=== PATIENT | female | born 1960 | race Caucasian/White ===

== ENCOUNTER 2016-12-07 05:59 | Inpatient (IN) | payer BC ==
[2016-12-07] VITALS (12 sets, daily range): BP systolic 119–197; BP diastolic 65–93
[~2016-12-07] VITALS: Ht 157.5 cm; Wt 54.5 kg
[~2016-12-07 05:59] MED LIST: ASPIR 8181 M1 PO; CALCIUM 600 MG1 EACH PO; CALCIUM ACETAT667 M2 PO; COREG25 M1 PO; DELFLEX W/1.53000 ML PD; DIALYVITE 801 TABLET PO; FISH OIL300 MG PO; HUMALOG100 UNIT/2 SC; HUMULIN N100 UNIT/2 SC; HYDRALAZINE HCL10 MG PO; IMDUR30 MG PO; LANTUS 3 M100 UNITS1 SC; LASIX40 MG PO; LIPITOR20 MG PO; MAGNESIUM250 MG PO; RENA-VITE RX T1 EACH PO; RENVELA800 MG PO; TOPROL XL50 MG PO; VITAMIN C1000 MG PO; VITAMIN D31000 UNI2 PO; ZESTRIL2.5 MG PO
[2016-12-07 06:45] LABS: POINT-OF-CARE METER ID UU14174212
[2016-12-07 06:47] LABS: HEMATOCRIT 41.6 % (36.0-46.0); MCH 29.6 PG (29.0-34.0); MCHC 32.7 G/DL (30.0-36.0); MCV 90.4 FL (83-99); MEAN PLAT.VOLUME 10.2 uM^3 (9.5-12.4); PLATELET COUNT 214 K/uL (156-360); RBC DIS.WIDTH-CV 14.1 % (11.8-14.6); RBC DIS.WIDTH-SD 46.2 % (39-53); WHITE BLOOD COUNT 8.3 K/uL (4.1-10.2)
[2016-12-07 07:06] LABS: ANION GAP 8 MEQ/L (2-14); CHLORIDE 108 MEQ/L (99-109); POTASSIUM 4.7 MEQ/L (3.7-5.4); SAMPLE HEMOLYSIS CHECK 0; SAMPLE ICTERIC CHECK 0; SAMPLE LIPEMIA CHECK 0; SODIUM 139 MEQ/L (136-147)
[2016-12-07 07:11] LABS: GFR ESTIMATE (CALCULATED) 9 mL/min/; GLUCOSE 109 mg/dL (70-99); UREA NITROGEN (BUN) 36 mg/dL (9-23)
[2016-12-07] MEDS ORDERED: NORCO 5/3251 TABLET PO (11:01)
[2016-12-07 14:38] LABS: METH RESISTANT S AUREUS PCR NEGATIVE (NEGATIVE)
[2016-12-07 14:41] LABS: PROBE CHECK PASS; SPECIMEN PROCESSING CONTROL PASS
[2016-12-07 17:11] LABS: POINT-OF-CARE METER ID UU13113803
[2016-12-08 01:10] VITALS: BP 144/69
[2016-12-08 05:03] VITALS: BP 128/62
[2016-12-08 05:53] LABS: EOSINOPHIL (%) 0.3 % (0-5); HEMATOCRIT 37.1 % (36.0-46.0); IMMATURE GRANULOCYTE (%) 0.3 % (0.0-0.7); LYMPHOCYTE COUNT 1.3 K/uL (1.0-2.8); MCH 28.8 PG (29.0-34.0); MCHC 32.3 G/DL (30.0-36.0); MEAN PLAT.VOLUME 10.8 uM^3 (9.5-12.4); MONOCYTE (%) 6.5 % (3-12); MONOCYTE COUNT 0.8 K/uL (0-0.8); NEUTROPHIL (%) 81.9 % (45-76); NEUTROPHIL COUNT 9.6 K/uL (1.8-6.4); PLATELET COUNT 184 K/uL (156-360); RBC DIS.WIDTH-CV 14.1 % (11.8-14.6); RBC DIS.WIDTH-SD 45.8 % (39-53); RED BLOOD COUNT 4.17 M/uL (3.80-5.20); WHITE BLOOD COUNT 11.7 K/uL (4.1-10.2)
[2016-12-08 06:11] LABS: ANION GAP 11 MEQ/L (2-14); CHLORIDE 105 MEQ/L (99-109); GFR ESTIMATE (CALCULATED) 12 mL/min/; GLUCOSE 108 mg/dL (70-99); POTASSIUM 4.6 MEQ/L (3.7-5.4); SAMPLE HEMOLYSIS CHECK 0; SAMPLE ICTERIC CHECK 0; SAMPLE LIPEMIA CHECK 0; SODIUM 138 MEQ/L (136-147); UREA NITROGEN (BUN) 33 mg/dL (9-23)
[2016-12-08 08:36] VITALS: BP 136/80
[2016-12-08 11:26] LABS: POINT-OF-CARE METER ID UU13113698
[2016-12-08 11:53] VITALS: BP 129/66
== END 2016-12-08 12:37 | disposition home or self-care (01) | DRG 37 ==
LOC: 2SOUTH 05:59 → 4WEST 12:20 → 2SOUTH 13:50 → 4EAST 20:56
PROVIDERS: Internal Medicine Nephrology; Surgery
DX: I65.22 Occlusion and stenosis of left carotid artery (principal); N18.6 End stage renal disease; I13.2 Hypertensive heart and chronic kidney disease with heart failure and with stage 5 chronic kidney disease, or end stage renal disease; E11.22 Type 2 diabetes mellitus with diabetic chronic kidney disease; Z99.2 Dependence on renal dialysis; E78.5 Hyperlipidemia, unspecified; D68.59 Other primary thrombophilia; I83.819 Varicose veins of unspecified lower extremity with pain; I27.2 Other secondary pulmonary hypertension; E78.00 Pure hypercholesterolemia, unspecified; I35.1 Nonrheumatic aortic (valve) insufficiency; I25.10 Atherosclerotic heart disease of native coronary artery without angina pectoris; Z87.891 Personal history of nicotine dependence; I50.9 Heart failure, unspecified; I25.5 Ischemic cardiomyopathy; Z95.1 Presence of aortocoronary bypass graft; Z79.82 Long term (current) use of aspirin; Z79.4 Long term (current) use of insulin
CPT/HCPCS: 80048; 82948; 85025; 85027; 87641; 93005; C1768; J0690; J1644; J1815; J2250; J2405; J2720; J2765; J2795; J3010; J7050

== ENCOUNTER 2016-12-15 16:44 | Emergency (ER) | payer BC ==
[~2016-12-15] VITALS: Ht 157.5 cm; Wt 54.7 kg
[~2016-12-15 16:44] MED LIST changes: +NORCO 5/3251 TABLET PO
[2016-12-15 18:33] LABS: HEMATOCRIT 35.9 % (36.0-46.0); MCH 29.6 PG (29.0-34.0); MCHC 33.4 G/DL (30.0-36.0); MCV 88.6 FL (83-99); MEAN PLAT.VOLUME 9.6 uM^3 (9.5-12.4); PLATELET COUNT 206 K/uL (156-360); RBC DIS.WIDTH-CV 14.4 % (11.8-14.6); RED BLOOD COUNT 4.05 M/uL (3.80-5.20); WHITE BLOOD COUNT 6.4 K/uL (4.1-10.2)
[2016-12-15 18:42] LABS: CHLORIDE 106 mEq/L (99-109); POTASSIUM 4.1 mEq/L (3.7-5.4); SODIUM 140 mEq/L (136-147)
[2016-12-15 18:44] LABS: GLUCOSE 115 mg/dL (70-99)
[2016-12-15 18:45] LABS: ANION GAP 11 MEQ/L (2-14)
[2016-12-15 18:47] LABS: GFR ESTIMATE (CALCULATED) 10 mL/min/
[2016-12-15 18:48] LABS: UREA NITROGEN (BUN) 48 mg/dL (9-23)
[2016-12-15 19:04] LABS: BODY FLUID RBC'S 1000 /MM^3 (0-100); BODY FLUID WBC'S 18 /MM^3 (0-500); TYPE OF FLUID PERITONEAL
[2016-12-15 19:16] LABS: BODY FLUID EOSINOPHILS 0 % (0-25); MONO RAW COUNT 75; MONONUCLEAR WBC'S 75 %; POLY RAW COUNT 25; POLYNUCLEAR WBC'S 25 % (0-25)
[2016-12-15 19:38] LABS: BODY FLUID PROTEIN < 3 G/DL
[2016-12-15 21:02] VITALS: BP 176/78
== END 2016-12-15 21:03 | disposition home or self-care (01) ==
LOC: EME 16:44
PROVIDERS: Emergency Medicine
DX: I12.0 Hypertensive chronic kidney disease with stage 5 chronic kidney disease or end stage renal disease (principal); N18.6 End stage renal disease; T50.3X5A Adverse effect of electrolytic, caloric and water-balance agents, initial encounter; Z99.2 Dependence on renal dialysis; E11.9 Type 2 diabetes mellitus without complications; Z95.1 Presence of aortocoronary bypass graft; Z87.891 Personal history of nicotine dependence
CPT/HCPCS: 80048; 82040; 82945; 84157; 85027; 87070; 87205; 89051; 99281; 99285

== ENCOUNTER 2017-02-17 17:43 | Inpatient (IN) | payer OTHER, BC ==
[2017-02-17] VITALS (7 sets, daily range): BP systolic 120–173; BP diastolic 51–128
[~2017-02-17] VITALS: Ht 157.5 cm; Wt 66.1 kg
[2017-02-17 18:28] LABS: CHLORIDE 105 mEq/L (99-109); HEMATOCRIT 30.9 % (36.0-46.0); MCH 30.3 PG (29.0-34.0); MCHC 31.7 G/DL (30.0-36.0); MCV 95.7 FL (83-99); MEAN PLAT.VOLUME 10.5 uM^3 (9.5-12.4); NRBC (%) 2.3 /100 WBC (0-0); PLATELET COUNT 171 K/uL (156-360); RBC DIS.WIDTH-SD 56.3 % (39-53); RED BLOOD COUNT 3.23 M/uL (3.80-5.20); SODIUM 137 mEq/L (136-147); WHITE BLOOD COUNT 3.4 K/uL (4.1-10.2)
[2017-02-17 18:30] LABS: GLUCOSE 92 mg/dL (70-99)
[2017-02-17 18:32] LABS: ANION GAP 21 MEQ/L (2-14)
[2017-02-17 18:34] LABS: GFR ESTIMATE (CALCULATED) 5 mL/min/
[2017-02-17 18:42] LABS: TROP-I INTERPRETATION NEGATIVE; TROPONIN-I 0.13 ng/mL (0.0-0.30)
[2017-02-17 18:43] LABS: POTASSIUM 7.7 mEq/L (3.7-5.4); UREA NITROGEN (BUN) 119 mg/dL (9-23)
[2017-02-17 18:46] LABS: BASE EXCESS -14.4 mEq/L (-3 to +3); BICARBONATE 11.4 mEq/L (22-26); CARBOXY HGB 1.8 % (0-5); METHEMOGLOBIN 1.1 % (0-1.5); PCO2 26 mm Hg (35-45); PO2 247 mm Hg (80-100)
[2017-02-17 18:47] LABS: COMMENTS - BLOOD GASES C+A+; DEVICE NIV; FI02 100 %; MODE SPONT; PEEP 5 CM/H20; PRES. SUPPORT 10 CM/H2O; SITE RB; TOTAL RESP RATE 31 resp/min; pH 7.25 (7.35-7.45)
[2017-02-17 20:09] LABS: ABS NEUTROPHIL COUNT 3.1; ANISOCYTOSIS 2+; BURR CELLS 1+; EOSINOPHIL ABS CT 0; MACROCYTES 1+; PLAT.SUFFICIENCY ADEQUATE; POIKILOCYTOSIS 2+
[2017-02-17] MEDS ORDERED: LISINOPRIL5 MG PO (20:28)
[2017-02-17 23:13] LABS: METH RESISTANT S AUREUS PCR NEGATIVE (NEGATIVE)
[2017-02-17 23:16] LABS: PROBE CHECK PASS; SPECIMEN PROCESSING CONTROL PASS
[2017-02-17 23:42] LABS: CHLORIDE 105 mEq/L (99-109); SODIUM 142 mEq/L (136-147)
[2017-02-17 23:45] LABS: ANION GAP 22 MEQ/L (2-14)
[2017-02-17 23:48] LABS: GFR ESTIMATE (CALCULATED) 6 mL/min/
[2017-02-17 23:50] LABS: GLUCOSE 234 mg/dL (70-99); POTASSIUM 5.3 mEq/L (3.7-5.4); UREA NITROGEN (BUN) 116 mg/dL (9-23)
[2017-02-18] VITALS (27 sets, daily range): BP systolic 71–158; BP diastolic 39–69
[2017-02-18 00:27] LABS: METHEMOGLOBIN 1.3 % (0-1.5); PCO2 29 mm Hg (35-45); PO2 64 mm Hg (80-100); pH 7.36 (7.35-7.45)
[2017-02-18 00:28] LABS: BICARBONATE 16.4 mEq/L (22-26); COMMENTS - BLOOD GASES C+A+; DEVICE 840 VENT; FI02 50 %; MODE SPONT; PEEP 5 CM/H20; PRES. SUPPORT 10 CM/H2O; SITE LR; TOTAL RESP RATE 25 resp/min
[2017-02-18 00:46] LABS: POINT-OF-CARE METER ID UU14162636; POINT-OF-CARE USER ID RADDRS44
[2017-02-18 02:48] LABS: INFLUENZA A VIRAL ANTIGEN NEGATIVE; INFLUENZA B VIRAL ANTIGEN NEGATIVE
[2017-02-18 05:34] LABS: POINT-OF-CARE USER ID LABHNS84
[2017-02-18 06:16] LABS: ALKALINE PHOSPHATASE 42 IU/L (3-129); ANION GAP 18 MEQ/L (2-14); CHLORIDE 100 MEQ/L (99-109); GFR ESTIMATE (CALCULATED) 7 mL/min/; POTASSIUM 4.3 MEQ/L (3.7-5.4); SAMPLE HEMOLYSIS CHECK 0; SAMPLE ICTERIC CHECK 1; SAMPLE LIPEMIA CHECK 0; SODIUM 139 MEQ/L (136-147); TOTAL BILIRUBIN 3.7 MG/DL (0.0-1.0); UREA NITROGEN (BUN) 95 mg/dL (9-23)
[2017-02-18 06:26] LABS: HEMATOCRIT 26.9 % (36.0-46.0); MCH 29.7 PG (29.0-34.0); MCHC 32.3 G/DL (30.0-36.0); MCV 91.8 FL (83-99); NRBC (%) 1.8 /100 WBC (0-0); RBC DIS.WIDTH-CV 15.8 % (11.8-14.6); RBC DIS.WIDTH-SD 53.1 % (39-53); RED BLOOD COUNT 2.93 M/uL (3.80-5.20)
[2017-02-18 06:41] LABS: GLUCOSE 376 mg/dL (70-99)
[2017-02-18 06:43] LABS: WHITE BLOOD COUNT 2.3 K/uL (4.1-10.2)
[2017-02-18 07:15] LABS: ABS NEUTROPHIL COUNT 2.1; ANISOCYTOSIS 1+; BAND NEUTROPHILS 32.1 % (0-8.0); BURR CELLS 1+; EOSINOPHIL ABS CT 0; GIANT PLATELETS 1+; LYMPHOCYTES 0.9 % (15.0-45.0); MACROCYTES 1+; MEAN PLAT.VOLUME 10.8 uM^3 (9.5-12.4); METAMYELOCYTES 2.7 %; MYELOCYTES 1.8 %; NUCLEATED RBC'S 1.8; OVALOCYTES 1+; PLAT.SUFFICIENCY DECREASED; POLYCHROMASIA 1+; SEG.NEUTROPHILS 60.7 % (46.0-76.0); SPHEROCYTES 1+; TOX.VACUOLIZATION 1+; TOXIC GRANULATION 1+
[2017-02-18 07:17] LABS: ANION GAP 18 MEQ/L (2-14); CHLORIDE 101 MEQ/L (99-109); GFR ESTIMATE (CALCULATED) 7 mL/min/; GLUCOSE 379 mg/dL (70-99); MAGNESIUM 2.1 mg/dl (1.3-2.7); POTASSIUM 4.3 MEQ/L (3.7-5.4); SAMPLE HEMOLYSIS CHECK 0; SAMPLE ICTERIC CHECK 1; SAMPLE LIPEMIA CHECK 0; SODIUM 139 MEQ/L (136-147); UREA NITROGEN (BUN) 101 mg/dL (9-23)
[2017-02-18 07:20] LABS: PLATELET COUNT 117 K/uL (156-360)
[2017-02-18 13:02] LABS: POINT-OF-CARE METER ID UU14162636
[2017-02-18 15:34] LABS: TYPE OF FLUID PERITONEAL
[2017-02-18 16:13] LABS: BODY FLUID RBC'S 21 /MM^3 (0-100); BODY FLUID WBC'S 299 /MM^3 (0-500); RED CELL DILUTION 1; WBC DILUTION 1; WHITE CELL RAW COUNT 239
[2017-02-18 16:37] LABS: BODY FLUID EOSINOPHILS 0 % (0-25); MONO RAW COUNT 2; MONONUCLEAR WBC'S 2 %; POLY RAW COUNT 98; POLYNUCLEAR WBC'S 98 % (0-25)
[2017-02-18 18:23] LABS: POINT-OF-CARE METER ID UU14162636
[2017-02-18 22:56] LABS: POINT-OF-CARE METER ID UU14162636; POINT-OF-CARE USER ID RADDRS44
[2017-02-19] VITALS (24 sets, daily range): BP systolic 49–138; BP diastolic 31–89
[2017-02-19 04:23] LABS: ADD MIUA? YES; BILIRUBIN NEGATIVE; BLOOD MODERATE; COLOR AMBER ((YELLOW)); GLUCOSE (STRIP) 150; KETONES NEGATIVE; LEUKOCYTES NEGATIVE; NITRITE NEGATIVE; PROTEIN (STRIP) 100; SPECIFIC GRAVITY 1.014 (1.000-1.030); UROBILINOGEN 0.2 MG/DL (0.2-1.0)
[2017-02-19 04:42] LABS: EPITHELIAL CELLS RARE /HPF; WHITE BLOOD CELLS 0-5 /HPF (0-5)
[2017-02-19 04:43] LABS: AMORPHOUS PHOSPHATE CRYSTALS 3+; BACTERIA 1+ /HPF; CASTS NONE SEEN /LPF; CRYSTALS PRESENT; MUCUS NONE SEEN /LPF; UCUL ADDED? NO
[2017-02-19 04:44] LABS: RED BLOOD CELLS 0-5 /HPF (0-5)
[2017-02-19 06:36] LABS: HEMATOCRIT 27.9 % (36.0-46.0); MCH 29.2 PG (29.0-34.0); MCHC 32.3 G/DL (30.0-36.0); MCV 90.6 FL (83-99); MEAN PLAT.VOLUME 11.1 uM^3 (9.5-12.4); NRBC (%) 1.7 /100 WBC (0-0); PLATELET COUNT 86 K/uL (156-360); RBC DIS.WIDTH-CV 15.7 % (11.8-14.6); RBC DIS.WIDTH-SD 51.5 % (39-53); RED BLOOD COUNT 3.08 M/uL (3.80-5.20)
[2017-02-19 06:41] LABS: WHITE BLOOD COUNT 5.4 K/uL (4.1-10.2)
[2017-02-19 07:25] LABS: ABS NEUTROPHIL COUNT 4.8; ANISOCYTOSIS 1+; EOSINOPHIL ABS CT 0; INSTRUMENT ABS NEUTROPHIL CT 4.9 K/uL; LYMPHOCYTES 8.7 % (15.0-45.0); MACROCYTES 1+; NUCLEATED RBC'S 1.7; PLAT.SUFFICIENCY DECREASED; SEG.NEUTROPHILS 79.1 % (46.0-76.0)
[2017-02-19 07:36] LABS: ANION GAP 14 MEQ/L (2-14); CHLORIDE 102 MEQ/L (99-109); GFR ESTIMATE (CALCULATED) 9 mL/min/; GLUCOSE 101 mg/dL (70-99); MAGNESIUM 1.9 mg/dl (1.3-2.7); POTASSIUM 3.4 MEQ/L (3.7-5.4); SAMPLE HEMOLYSIS CHECK 0; SAMPLE ICTERIC CHECK 0; SAMPLE LIPEMIA CHECK 0; SODIUM 143 MEQ/L (136-147); UREA NITROGEN (BUN) 84 mg/dL (9-23)
[2017-02-19 07:49] LABS: BAND NEUTROPHILS 9.6 % (0-8.0)
[2017-02-19 09:14] LABS: POINT-OF-CARE METER ID UU13113803
[2017-02-19 09:39] LABS: TROP-I INTERPRETATION NEGATIVE; TROPONIN-I 0.14 ng/mL (0.0-0.30)
[2017-02-19 12:28] LABS: POINT-OF-CARE METER ID UU14174217
[2017-02-20] VITALS (24 sets, daily range): BP systolic 61–165; BP diastolic 35–85
[2017-02-20 06:28] LABS: ANION GAP 13 MEQ/L (2-14); CHLORIDE 99 MEQ/L (99-109); GFR ESTIMATE (CALCULATED) 10 mL/min/; MAGNESIUM 1.8 mg/dl (1.3-2.7); SAMPLE HEMOLYSIS CHECK 0; SAMPLE ICTERIC CHECK 0; SAMPLE LIPEMIA CHECK 0; SODIUM 137 MEQ/L (136-147); UREA NITROGEN (BUN) 74 mg/dL (9-23)
[2017-02-20 06:29] LABS: GLUCOSE 176 mg/dL (70-99)
[2017-02-20 06:40] LABS: HEMATOCRIT 21.1 % (36.0-46.0); MCH 29.6 PG (29.0-34.0); MCHC 32.2 G/DL (30.0-36.0); MCV 91.7 FL (83-99); NRBC (%) 0.5 /100 WBC (0-0); RBC DIS.WIDTH-CV 15.6 % (11.8-14.6); RBC DIS.WIDTH-SD 52.4 % (39-53)
[2017-02-20 06:48] LABS: WHITE BLOOD COUNT 7.8 K/uL (4.1-10.2)
[2017-02-20 08:36] LABS: HEMATOCRIT 24.6 % (36.0-46.0); MCV 92.1 FL (83-99)
[2017-02-20 13:17] LABS: POINT-OF-CARE METER ID UU14162636
[2017-02-20 15:42] LABS: EOSINOPHIL (%) 0.6 % (0-5); EOSINOPHIL COUNT 0.1 K/uL (0-0.3); HEMATOLOGY COMMENT 1 SN; IMMATURE GRANULOCYTE (%) 2.2 % (0.0-0.7); IMMATURE GRANULOCYTE COUNT 0.2 K/uL; INSTRUMENT ABS NEUTROPHIL CT 7.2 K/uL; LYMPHOCYTE COUNT 0.3 K/uL (1.0-2.8); MEAN PLAT.VOLUME 11.6 uM^3 (9.5-12.4); MONOCYTE (%) 1.9 % (3-12); MONOCYTE COUNT 0.2 K/uL (0-0.8); NEUTROPHIL COUNT 7.2 K/uL (1.8-6.4); PLAT.SUFFICIENCY DECREASED; PLATELET COUNT 62 K/uL (156-360)
[2017-02-20 17:55] LABS: POINT-OF-CARE METER ID UU13113803
[2017-02-21] VITALS (30 sets, daily range): BP systolic 85–156; BP diastolic 53–92
[2017-02-21 06:06] LABS: HEMATOCRIT 22.9 % (36.0-46.0); MCH 29.8 PG (29.0-34.0); MCHC 31.9 G/DL (30.0-36.0); MCV 93.5 FL (83-99); NRBC (%) 0.1 /100 WBC (0-0); PLATELET COUNT 65 K/uL (156-360); RBC DIS.WIDTH-CV 15.7 % (11.8-14.6); RBC DIS.WIDTH-SD 53.1 % (39-53); RED BLOOD COUNT 2.45 M/uL (3.80-5.20)
[2017-02-21 06:08] LABS: WHITE BLOOD COUNT 16.3 K/uL (4.1-10.2)
[2017-02-21 06:13] LABS: ANION GAP 16 MEQ/L (2-14); CHLORIDE 92 MEQ/L (99-109); GFR ESTIMATE (CALCULATED) 10 mL/min/; GLUCOSE 263 mg/dL (70-99); MAGNESIUM 1.7 mg/dl (1.3-2.7); SAMPLE HEMOLYSIS CHECK 0; SAMPLE ICTERIC CHECK 0; SAMPLE LIPEMIA CHECK 0; SODIUM 129 MEQ/L (136-147); UREA NITROGEN (BUN) 65 mg/dL (9-23)
[2017-02-21 06:46] LABS: EOSINOPHIL (%) 0.1 % (0-5); HEMATOLOGY COMMENT 1 SMEAR COMPATIBLE; IMMATURE GRANULOCYTE (%) 2.1 % (0.0-0.7); IMMATURE GRANULOCYTE COUNT 0.4 K/uL; LYMPHOCYTE COUNT 0.6 K/uL (1.0-2.8); MONOCYTE COUNT 0.3 K/uL (0-0.8); NEUTROPHIL (%) 92.1 % (45-76)
[2017-02-21 13:17] LABS: POINT-OF-CARE METER ID UU13113731
[2017-02-21 18:12] LABS: POINT-OF-CARE METER ID UU13113731
[2017-02-22] VITALS (24 sets, daily range): BP systolic 71–146; BP diastolic 46–88
[2017-02-22 02:15] LABS: POINT-OF-CARE METER ID UU14174217
[2017-02-22 05:56] LABS: HEMATOCRIT 27.6 % (36.0-46.0); MCH 30.1 PG (29.0-34.0); MCHC 33.3 G/DL (30.0-36.0); MCV 90.2 FL (83-99); NRBC (%) 0.2 /100 WBC (0-0); RBC DIS.WIDTH-CV 15.1 % (11.8-14.6); RBC DIS.WIDTH-SD 48.5 % (39-53); WHITE BLOOD COUNT 19.8 K/uL (4.1-10.2)
[2017-02-22 06:09] LABS: RED BLOOD COUNT 3.06 M/uL (3.80-5.20)
[2017-02-22 06:11] LABS: ANION GAP 15 MEQ/L (2-14); CHLORIDE 89 MEQ/L (99-109); GFR ESTIMATE (CALCULATED) 10 mL/min/; MAGNESIUM 1.6 mg/dl (1.3-2.7); POTASSIUM 3.6 MEQ/L (3.7-5.4); SAMPLE HEMOLYSIS CHECK 0; SAMPLE ICTERIC CHECK 0; SAMPLE LIPEMIA CHECK 0; SODIUM 128 MEQ/L (136-147); UREA NITROGEN (BUN) 67 mg/dL (9-23)
[2017-02-22 06:13] LABS: GLUCOSE 124 mg/dL (70-99)
[2017-02-22 09:05] LABS: EOSINOPHIL (%) 0.6 % (0-5); EOSINOPHIL COUNT 0.1 K/uL (0-0.3); HEMATOLOGY COMMENT 1 SMEAR COMPATIBLE; IMMATURE GRANULOCYTE (%) 3.2 % (0.0-0.7); IMMATURE GRANULOCYTE COUNT 0.6 K/uL; INSTRUMENT ABS NEUTROPHIL CT 17.6 K/uL; MEAN PLAT.VOLUME 11.4 uM^3 (9.5-12.4); MONOCYTE (%) 2.1 % (3-12); MONOCYTE COUNT 0.4 K/uL (0-0.8); NEUTROPHIL (%) 88.9 % (45-76); NEUTROPHIL COUNT 17.6 K/uL (1.8-6.4)
[2017-02-22 09:06] LABS: PLATELET COUNT 116 K/uL (156-360)
[2017-02-22 09:45] LABS: POINT-OF-CARE METER ID UU14174217
[2017-02-22 14:07] LABS: POINT-OF-CARE METER ID UU14174217
[2017-02-22 18:02] LABS: POINT-OF-CARE METER ID UU14174217
[2017-02-23] VITALS (26 sets, daily range): BP systolic 55–134; BP diastolic 23–82
[2017-02-23 00:27] LABS: POINT-OF-CARE METER ID UU14162636
[2017-02-23 06:28] LABS: ANION GAP 13 MEQ/L (2-14); CHLORIDE 88 MEQ/L (99-109); GFR ESTIMATE (CALCULATED) 10 mL/min/; HEMATOCRIT 23.8 % (36.0-46.0); MAGNESIUM 1.6 mg/dl (1.3-2.7); MCH 31.3 PG (29.0-34.0); MCHC 34.5 G/DL (30.0-36.0); MCV 90.8 FL (83-99); MEAN PLAT.VOLUME 10.8 uM^3 (9.5-12.4); NRBC (%) 0.1 /100 WBC (0-0); POTASSIUM 3.2 MEQ/L (3.7-5.4); RBC DIS.WIDTH-CV 14.8 % (11.8-14.6); RBC DIS.WIDTH-SD 47.9 % (39-53); RED BLOOD COUNT 2.62 M/uL (3.80-5.20); SAMPLE HEMOLYSIS CHECK 0; SAMPLE ICTERIC CHECK 0; SAMPLE LIPEMIA CHECK 0; SODIUM 126 MEQ/L (136-147); UREA NITROGEN (BUN) 64 mg/dL (9-23)
[2017-02-23 06:31] LABS: GLUCOSE 86 mg/dL (70-99)
[2017-02-23 06:32] LABS: PLATELET COUNT 155 K/uL (156-360)
[2017-02-23 08:02] LABS: ABS NEUTROPHIL COUNT 15.6; ANISOCYTOSIS 1+; ATYPICAL LYMPHOCYTE 1.8 %; BAND NEUTROPHILS 0.9 % (0-8.0); EOSINOPHIL ABS CT 0.2; EOSINOPHILS 0.9 % (0-5.0); INSTRUMENT ABS NEUTROPHIL CT 14.6 K/uL; LYMPHOCYTES 1.8 % (15.0-45.0); MACROCYTES 1+; METAMYELOCYTES 0.9 %; PLAT.SUFFICIENCY ADEQUATE; POLYCHROMASIA 1+
[2017-02-23 11:23] LABS: INTER. NORMALIZED RATIO 1.2; PROTHROMBIN TIME 12.1 (9.2-11.2); PTT 27.7 (25-32)
[2017-02-23 12:13] LABS: BASE EXCESS 0.3 mEq/L (-3 to +3); BICARBONATE 28.7 mEq/L (22-26); CARBOXY HGB 3.3 % (0-5); COMMENTS - BLOOD GASES A+C+; DEVICE 840; FI02 60 %; METHEMOGLOBIN 1.9 % (0-1.5); MODE A/C; PCO2 67 mm Hg (35-45); PO2 57 mm Hg (80-100); SITE LR; pH 7.24 (7.35-7.45)
[2017-02-23 12:14] LABS: MECHANICAL RATE 15 resp/min; PEEP 5 CM/H20; TIDAL VOLUME 380 ML; TOTAL RESP RATE 15 resp/min
[2017-02-23 12:28] LABS: POINT-OF-CARE METER ID UU13113731
[2017-02-23 16:29] LABS: TYPE OF FLUID THORACENTESIS
[2017-02-23 17:10] LABS: BODY FLUID PROTEIN 3.5 G/DL
[2017-02-23 17:19] LABS: BODY FLUID LDH 1857 IU/L
[2017-02-23 17:58] LABS: BODY FLUID RBC'S 1350 /MM^3 (0-100); BODY FLUID WBC'S 12600 /MM^3 (0-500); RED CELL AREA COUNTED 0.4; RED CELL DILUTION 6; WBC AREA COUNTED 0.4; WBC DILUTION 6; WHITE CELL RAW COUNT 84
[2017-02-23 18:01] LABS: POINT-OF-CARE METER ID UU14162636
[2017-02-23 18:20] LABS: BODY FLUID EOSINOPHILS 0 % (0-25); MONO RAW COUNT 10; MONONUCLEAR WBC'S 10 %; POLY RAW COUNT 90; POLYNUCLEAR WBC'S 90 % (0-25)
[2017-02-24] VITALS (21 sets, daily range): BP systolic 81–136; BP diastolic 39–73
[2017-02-24 00:06] LABS: POINT-OF-CARE METER ID UU14174217
[2017-02-24 06:18] LABS: ANION GAP 15 MEQ/L (2-14); CHLORIDE 88 MEQ/L (99-109); GFR ESTIMATE (CALCULATED) 10 mL/min/; MAGNESIUM 1.6 mg/dl (1.3-2.7); POTASSIUM 3.1 MEQ/L (3.7-5.4); SAMPLE HEMOLYSIS CHECK 0; SAMPLE ICTERIC CHECK 0; SAMPLE LIPEMIA CHECK 0; SODIUM 128 MEQ/L (136-147); UREA NITROGEN (BUN) 56 mg/dL (9-23)
[2017-02-24 06:21] LABS: GLUCOSE 425 mg/dL (70-99)
[2017-02-24 06:30] LABS: HEMATOCRIT 22.9 % (36.0-46.0); MCH 30.1 PG (29.0-34.0); MCHC 32.3 G/DL (30.0-36.0); MCV 93.1 FL (83-99); MEAN PLAT.VOLUME 10.5 uM^3 (9.5-12.4); NRBC (%) 0.2 /100 WBC (0-0); RBC DIS.WIDTH-CV 14.7 % (11.8-14.6); RBC DIS.WIDTH-SD 49.3 % (39-53); RED BLOOD COUNT 2.46 M/uL (3.80-5.20); WHITE BLOOD COUNT 18.4 K/uL (4.1-10.2)
[2017-02-24 07:00] LABS: PLATELET COUNT 226 K/uL (156-360)
[2017-02-24 07:17] LABS: EOSINOPHIL (%) 0.1 % (0-5); IMMATURE GRANULOCYTE (%) 2.5 % (0.0-0.7); IMMATURE GRANULOCYTE COUNT 0.5 K/uL; INSTRUMENT ABS NEUTROPHIL CT 16.1 K/uL; LYMPHOCYTE COUNT 1.1 K/uL (1.0-2.8); MONOCYTE (%) 4.1 % (3-12); MONOCYTE COUNT 0.8 K/uL (0-0.8); NEUTROPHIL (%) 87.3 % (45-76); NEUTROPHIL COUNT 16.1 K/uL (1.8-6.4)
[2017-02-24 07:22] LABS: TYPE OF FLUID PD FLUID
[2017-02-24 07:55] LABS: BODY FLUID RBC'S 26 /MM^3 (0-100); BODY FLUID WBC'S 14 /MM^3 (0-500); RED CELL AREA COUNTED 18; RED CELL DILUTION 1; WBC AREA COUNTED 18; WBC DILUTION 1; WHITE CELL RAW COUNT 25
[2017-02-24 08:16] LABS: BODY FLUID EOSINOPHILS 1 % (0-25); MONO RAW COUNT 42; MONONUCLEAR WBC'S 42 %; POLY RAW COUNT 57; POLYNUCLEAR WBC'S 57 % (0-25)
[2017-02-24 14:32] LABS: POINT-OF-CARE METER ID UU14174217
[2017-02-24 18:33] LABS: POINT-OF-CARE METER ID UU14174217
[2017-02-24 21:56] LABS: POINT-OF-CARE METER ID UU14174217; POINT-OF-CARE USER ID RADDRS44
[2017-02-25] VITALS (12 sets, daily range): BP systolic 95–121; BP diastolic 56–72
[2017-02-25 02:26] LABS: POINT-OF-CARE USER ID RADDRS44
[2017-02-25 04:28] LABS: HEMATOCRIT 28.5 % (36.0-46.0); MCH 29.3 PG (29.0-34.0); MCHC 32.6 G/DL (30.0-36.0); MCV 89.9 FL (83-99); MEAN PLAT.VOLUME 10.1 uM^3 (9.5-12.4); NRBC (%) 0.3 /100 WBC (0-0); PLATELET COUNT 220 K/uL (156-360); RBC DIS.WIDTH-CV 16.5 % (11.8-14.6); RBC DIS.WIDTH-SD 52.5 % (39-53); WHITE BLOOD COUNT 20.3 K/uL (4.1-10.2)
[2017-02-25 04:36] LABS: CHLORIDE 96 mEq/L (99-109); SODIUM 132 mEq/L (136-147)
[2017-02-25 04:37] LABS: CHLORIDE 96 mEq/L (99-109); SODIUM 133 mEq/L (136-147)
[2017-02-25 04:38] LABS: GLUCOSE 284 mg/dL (70-99); MAGNESIUM 1.6 mg/dL (1.3-2.7)
[2017-02-25 04:39] LABS: ANION GAP 14 MEQ/L (2-14); GLUCOSE 284 mg/dL (70-99)
[2017-02-25 04:40] LABS: ANION GAP 15 MEQ/L (2-14)
[2017-02-25 04:41] LABS: GFR ESTIMATE (CALCULATED) 10 mL/min/
[2017-02-25 04:42] LABS: UREA NITROGEN (BUN) 51 mg/dL (9-23)
[2017-02-25 04:43] LABS: GFR ESTIMATE (CALCULATED) 10 mL/min/
[2017-02-25 04:44] LABS: UREA NITROGEN (BUN) 51 mg/dL (9-23)
[2017-02-25 04:46] LABS: POTASSIUM 3.8 mEq/L (3.7-5.4)
[2017-02-25 05:13] LABS: RED BLOOD COUNT 3.17 M/uL (3.80-5.20)
[2017-02-25 05:53] LABS: POINT-OF-CARE USER ID RADDRS44
[2017-02-25 06:02] LABS: ABS NEUTROPHIL COUNT 18.7; ANISOCYTOSIS 2+; EOSINOPHIL ABS CT 0; INSTRUMENT ABS NEUTROPHIL CT 17.9 K/uL; MACROCYTES 1+; MICROCYTOSIS 1+; PLAT.SUFFICIENCY ADEQUATE; POLYCHROMASIA 1+
[2017-02-25 11:33] LABS: POINT-OF-CARE METER ID UU14162636
[2017-02-25 11:39] LABS: POINT-OF-CARE METER ID UU13113731
[2017-02-25 11:40] LABS: POINT-OF-CARE METER ID UU14174217
[2017-02-25 11:41] LABS: POINT-OF-CARE METER ID UU14174217
[2017-02-25 12:20] LABS: POINT-OF-CARE METER ID UU14174217
[2017-02-25 14:32] LABS: POINT-OF-CARE METER ID UU14162636
[2017-02-25 18:21] LABS: POINT-OF-CARE METER ID UU14162636
[2017-02-25 22:12] LABS: POINT-OF-CARE METER ID UU14162636; POINT-OF-CARE USER ID RADDRS44
[2017-02-26] VITALS (13 sets, daily range): BP systolic 83–151; BP diastolic 50–91
[2017-02-26 02:46] LABS: POINT-OF-CARE METER ID UU13113731
[2017-02-26 05:32] LABS: POINT-OF-CARE METER ID UU13113731; POINT-OF-CARE USER ID RADDRS44
[2017-02-26 05:58] LABS: HEMATOCRIT 27.1 % (36.0-46.0); MCH 30.1 PG (29.0-34.0); MCHC 31.7 G/DL (30.0-36.0); MCV 94.8 FL (83-99); NRBC (%) 0.1 /100 WBC (0-0); RBC DIS.WIDTH-CV 17.9 % (11.8-14.6); RED BLOOD COUNT 2.86 M/uL (3.80-5.20); WHITE BLOOD COUNT 23.4 K/uL (4.1-10.2)
[2017-02-26 06:23] LABS: ANION GAP 14 MEQ/L (2-14); CHLORIDE 97 MEQ/L (99-109); GFR ESTIMATE (CALCULATED) 10 mL/min/; GLUCOSE 227 mg/dL (70-99); POTASSIUM 4.2 MEQ/L (3.7-5.4); SAMPLE HEMOLYSIS CHECK 0; SAMPLE ICTERIC CHECK 0; SAMPLE LIPEMIA CHECK 0; SODIUM 132 MEQ/L (136-147); UREA NITROGEN (BUN) 55 mg/dL (9-23)
[2017-02-26 06:29] LABS: PLATELET COUNT 242 K/uL (156-360)
[2017-02-26 06:31] LABS: ABS NEUTROPHIL COUNT 21.9; ANISOCYTOSIS 1+; EOSINOPHIL ABS CT 0.1; EOSINOPHILS 0.4 % (0-5.0); HYPOCHROMASIA 1+; INSTRUMENT ABS NEUTROPHIL CT 21.3 K/uL; LYMPHOCYTES 2.2 % (15.0-45.0); MACROCYTES 1+; PLAT.SUFFICIENCY ADEQUATE; POIKILOCYTOSIS 1+; POLYCHROMASIA 1+; SEG.NEUTROPHILS 93.4 % (46.0-76.0)
[2017-02-26 11:42] LABS: POINT-OF-CARE METER ID UU13113731
[2017-02-26 12:23] LABS: TYPE OF FLUID PD FLUID
[2017-02-26 12:59] LABS: BODY FLUID RBC'S 29 /MM^3 (0-100); BODY FLUID WBC'S 32 /MM^3 (0-500); RED CELL AREA COUNTED 18; RED CELL DILUTION 1; WBC AREA COUNTED 18; WBC DILUTION 1; WHITE CELL RAW COUNT 57
[2017-02-26 13:05] LABS: BODY FLUID EOSINOPHILS 0 % (0-25); MONO RAW COUNT 41; MONONUCLEAR WBC'S 41 %; POLY RAW COUNT 59; POLYNUCLEAR WBC'S 59 % (0-25)
[2017-02-26 15:15] LABS: POINT-OF-CARE METER ID UU13113731
[2017-02-26 18:43] LABS: POINT-OF-CARE METER ID UU13113803
[2017-02-26 22:36] LABS: POINT-OF-CARE METER ID UU13113803; POINT-OF-CARE USER ID RADDRS44
[2017-02-27] VITALS (9 sets, daily range): BP systolic 84–132; BP diastolic 51–98
[2017-02-27 02:55] LABS: POINT-OF-CARE USER ID RADDRS44
[2017-02-27 06:04] LABS: HEMATOCRIT 28.1 % (36.0-46.0); MCH 30.1 PG (29.0-34.0); MEAN PLAT.VOLUME 10.1 uM^3 (9.5-12.4); NRBC (%) 0.1 /100 WBC (0-0); PLATELET COUNT 263 K/uL (156-360); RBC DIS.WIDTH-CV 17.4 % (11.8-14.6); RED BLOOD COUNT 2.99 M/uL (3.80-5.20); WHITE BLOOD COUNT 20.7 K/uL (4.1-10.2)
[2017-02-27 06:28] LABS: ANION GAP 14 MEQ/L (2-14); CHLORIDE 98 MEQ/L (99-109); GFR ESTIMATE (CALCULATED) 10 mL/min/; GLUCOSE 145 mg/dL (70-99); POTASSIUM 4.3 MEQ/L (3.7-5.4); SAMPLE HEMOLYSIS CHECK 0; SAMPLE ICTERIC CHECK 0; SAMPLE LIPEMIA CHECK 0; SODIUM 134 MEQ/L (136-147); UREA NITROGEN (BUN) 53 mg/dL (9-23)
[2017-02-27 11:21] LABS: BASE EXCESS -4.1 mEq/L (-3 to +3); BICARBONATE 21.6 mEq/L (22-26); CARBOXY HGB 2.6 % (0-5); METHEMOGLOBIN 1.2 % (0-1.5); PCO2 41 mm Hg (35-45); PO2 77 mm Hg (80-100); SITE ALINE; pH 7.33 (7.35-7.45)
[2017-02-27 11:22] LABS: DEVICE VENT; FI02 40 %; PEEP 5 CM/H20; PRES. SUPPORT 10 CM/H2O; TOTAL RESP RATE 24 resp/min
[2017-02-27 11:26] LABS: POINT-OF-CARE METER ID UU14174217
[2017-02-27 15:54] LABS: POINT-OF-CARE METER ID UU14174217
[2017-02-27 18:40] LABS: POINT-OF-CARE METER ID UU14174217
[2017-02-27 21:57] LABS: POINT-OF-CARE METER ID UU14174217
[2017-02-28] VITALS (7 sets, daily range): BP systolic 79–105; BP diastolic 46–65
[2017-02-28 03:13] LABS: POINT-OF-CARE METER ID UU14174217
[2017-02-28 05:28] LABS: POINT-OF-CARE METER ID UU14174217
[2017-02-28 05:51] LABS: BASOPHIL COUNT 0.1 K/uL (0-0.1); EOSINOPHIL (%) 0.1 % (0-5); HEMATOCRIT 25.7 % (36.0-46.0); IMMATURE GRANULOCYTE (%) 1.2 % (0.0-0.7); IMMATURE GRANULOCYTE COUNT 0.2 K/uL; INSTRUMENT ABS NEUTROPHIL CT 15.9 K/uL; LYMPHOCYTE COUNT 1.1 K/uL (1.0-2.8); MCH 30.4 PG (29.0-34.0); MCHC 32.3 G/DL (30.0-36.0); MCV 94.1 FL (83-99); MEAN PLAT.VOLUME 10.1 uM^3 (9.5-12.4); MONOCYTE (%) 7.8 % (3-12); MONOCYTE COUNT 1.5 K/uL (0-0.8); NEUTROPHIL (%) 84.7 % (45-76); NEUTROPHIL COUNT 15.9 K/uL (1.8-6.4); NRBC (%) 0.3 /100 WBC (0-0); PLATELET COUNT 299 K/uL (156-360); RBC DIS.WIDTH-CV 17.9 % (11.8-14.6); RBC DIS.WIDTH-SD 55.3 % (39-53); RED BLOOD COUNT 2.73 M/uL (3.80-5.20); WHITE BLOOD COUNT 18.7 K/uL (4.1-10.2)
[2017-02-28 06:15] LABS: ANION GAP 11 MEQ/L (2-14); CHLORIDE 96 MEQ/L (99-109); GFR ESTIMATE (CALCULATED) 9 mL/min/; GLUCOSE 177 mg/dL (70-99); MAGNESIUM 2.2 mg/dl (1.3-2.7); POTASSIUM 4.4 MEQ/L (3.7-5.4); SAMPLE HEMOLYSIS CHECK 0; SAMPLE ICTERIC CHECK 0; SAMPLE LIPEMIA CHECK 0; SODIUM 133 MEQ/L (136-147); UREA NITROGEN (BUN) 53 mg/dL (9-23)
[2017-02-28 10:17] LABS: POINT-OF-CARE METER ID UU13113731
[2017-02-28 13:38] LABS: ALKALINE PHOSPHATASE 69 IU/L (3-129); AMYLASE 153 IU/L (1-118); DIRECT BILIRUBIN 0.4 mg/dL (0.0-0.3); TOTAL BILIRUBIN 0.8 MG/DL (0.0-1.0)
[2017-02-28 14:41] LABS: POINT-OF-CARE METER ID UU13113731
[2017-02-28 17:51] LABS: POINT-OF-CARE METER ID UU13113731
[2017-02-28 22:29] LABS: POINT-OF-CARE METER ID UU13113731
[2017-03-01] VITALS (10 sets, daily range): BP systolic 84–117; BP diastolic 45–62
[2017-03-01 03:07] LABS: POINT-OF-CARE METER ID UU13113731
[2017-03-01 05:24] LABS: POINT-OF-CARE METER ID UU13113731
[2017-03-01 06:37] LABS: CHLORIDE 99 MEQ/L (99-109); GFR ESTIMATE (CALCULATED) 8 mL/min/; IRON 52 MCG/DL (35-150); MAGNESIUM 2.4 mg/dl (1.3-2.7); UREA NITROGEN (BUN) 52 mg/dL (9-23)
[2017-03-01 06:46] LABS: ANION GAP 13 MEQ/L (2-14); SAMPLE HEMOLYSIS CHECK 0; SAMPLE ICTERIC CHECK 0; SAMPLE LIPEMIA CHECK 0
[2017-03-01 07:24] LABS: HEMATOCRIT 25.8 % (36.0-46.0); IMM.RETIC FRACTION 38.2 % (3-19); MCH 31.3 PG (29.0-34.0); MCHC 32.2 G/DL (30.0-36.0); MCV 97.4 FL (83-99); MEAN PLAT.VOLUME 10.4 uM^3 (9.5-12.4); NRBC (%) 0.1 /100 WBC (0-0); PLATELET COUNT 317 K/uL (156-360); RBC DIS.WIDTH-CV 19.1 % (11.8-14.6); RED BLOOD COUNT 2.65 M/uL (3.80-5.20); RETIC HGB EQUIVALENT 30.5 (28-36); RETICULOCYTE COUNT 4.8 % (0.5-1.8); WHITE BLOOD COUNT 21.6 K/uL (4.1-10.2)
[2017-03-01 08:12] LABS: GLUCOSE 89 mg/dL (70-99); SODIUM 140 MEQ/L (136-147)
[2017-03-01 09:09] LABS: POC NON-PRINT COM 1 ND
[2017-03-01 10:29] LABS: LIPASE 157 U/L (1.0-51.0)
[2017-03-01 11:05] LABS: FERRITIN > 1500 NG/ML (10-291)
[2017-03-01 11:11] LABS: POINT-OF-CARE METER ID UU13113731
[2017-03-01 15:07] LABS: POINT-OF-CARE METER ID UU13113731
[2017-03-01 22:12] LABS: POINT-OF-CARE METER ID UU13113731
[2017-03-02] VITALS (7 sets, daily range): BP systolic 71–106; BP diastolic 42–63
[2017-03-02 05:52] LABS: BASOPHIL COUNT 0.1 K/uL (0-0.1); EOSINOPHIL (%) 1.2 % (0-5); EOSINOPHIL COUNT 0.2 K/uL (0-0.3); HEMATOCRIT 24.2 % (36.0-46.0); IMMATURE GRANULOCYTE (%) 0.8 % (0.0-0.7); IMMATURE GRANULOCYTE COUNT 0.2 K/uL; LYMPHOCYTE COUNT 1.1 K/uL (1.0-2.8); MCH 29.5 PG (29.0-34.0); MCHC 30.6 G/DL (30.0-36.0); MCV 96.4 FL (83-99); MONOCYTE (%) 6.7 % (3-12); MONOCYTE COUNT 1.2 K/uL (0-0.8); NEUTROPHIL (%) 84.9 % (45-76); NRBC (%) 0.1 /100 WBC (0-0); PLATELET COUNT 297 K/uL (156-360); RBC DIS.WIDTH-CV 17.8 % (11.8-14.6); RED BLOOD COUNT 2.51 M/uL (3.80-5.20); WHITE BLOOD COUNT 17.7 K/uL (4.1-10.2)
[2017-03-02 06:13] LABS: ANION GAP 12 MEQ/L (2-14); CHLORIDE 101 MEQ/L (99-109); GFR ESTIMATE (CALCULATED) 9 mL/min/; GLUCOSE 131 mg/dL (70-99); LIPASE 132 U/L (1.0-51.0); MAGNESIUM 2.1 mg/dl (1.3-2.7); POTASSIUM 3.9 MEQ/L (3.7-5.4); SAMPLE HEMOLYSIS CHECK 0; SAMPLE ICTERIC CHECK 0; SAMPLE LIPEMIA CHECK 0; SODIUM 138 MEQ/L (136-147); UREA NITROGEN (BUN) 47 mg/dL (9-23)
[2017-03-02 17:41] LABS: POINT-OF-CARE METER ID UU13113731; POINT-OF-CARE USER ID 606021424
[2017-03-03] VITALS (8 sets, daily range): BP systolic 0–136; BP diastolic 0–79
[2017-03-03 06:13] LABS: BASOPHIL COUNT 0.1 K/uL (0-0.1); EOSINOPHIL (%) 0.9 % (0-5); EOSINOPHIL COUNT 0.2 K/uL (0-0.3); HEMATOCRIT 24.3 % (36.0-46.0); IMMATURE GRANULOCYTE (%) 0.7 % (0.0-0.7); IMMATURE GRANULOCYTE COUNT 0.1 K/uL; MCH 30.1 PG (29.0-34.0); MCHC 30.9 G/DL (30.0-36.0); MCV 97.6 FL (83-99); MEAN PLAT.VOLUME 10.2 uM^3 (9.5-12.4); MONOCYTE (%) 6.9 % (3-12); MONOCYTE COUNT 1.3 K/uL (0-0.8); NEUTROPHIL (%) 85.6 % (45-76); NRBC (%) 0.1 /100 WBC (0-0); PLATELET COUNT 362 K/uL (156-360); RBC DIS.WIDTH-CV 18.3 % (11.8-14.6); RBC DIS.WIDTH-SD 62.6 % (39-53); RED BLOOD COUNT 2.49 M/uL (3.80-5.20); WHITE BLOOD COUNT 18.7 K/uL (4.1-10.2)
[2017-03-03 06:26] LABS: ANION GAP 14 MEQ/L (2-14); CHLORIDE 99 MEQ/L (99-109); GFR ESTIMATE (CALCULATED) 10 mL/min/; POTASSIUM 3.9 MEQ/L (3.7-5.4); SAMPLE HEMOLYSIS CHECK 0; SAMPLE ICTERIC CHECK 0; SAMPLE LIPEMIA CHECK 0; SODIUM 137 MEQ/L (136-147); UREA NITROGEN (BUN) 42 mg/dL (9-23)
[2017-03-03 06:27] LABS: GLUCOSE 208 mg/dL (70-99)
[2017-03-03 12:31] LABS: POINT-OF-CARE METER ID UU13113731
[2017-03-03 17:59] LABS: POINT-OF-CARE METER ID UU13113731
[2017-03-03 21:52] LABS: POINT-OF-CARE METER ID UU14162636
[2017-03-04] VITALS (9 sets, daily range): BP systolic 94–148; BP diastolic 45–61
[2017-03-04 06:21] LABS: BASOPHIL COUNT 0.1 K/uL (0-0.1); EOSINOPHIL (%) 0.5 % (0-5); EOSINOPHIL COUNT 0.1 K/uL (0-0.3); HEMATOCRIT 22.4 % (36.0-46.0); IMMATURE GRANULOCYTE (%) 1.1 % (0.0-0.7); IMMATURE GRANULOCYTE COUNT 0.2 K/uL; INSTRUMENT ABS NEUTROPHIL CT 15.2 K/uL; LYMPHOCYTE COUNT 1.1 K/uL (1.0-2.8); MCH 30.1 PG (29.0-34.0); MCHC 30.8 G/DL (30.0-36.0); MCV 97.8 FL (83-99); MEAN PLAT.VOLUME 9.8 uM^3 (9.5-12.4); MONOCYTE (%) 5.5 % (3-12); NEUTROPHIL (%) 86.2 % (45-76); NEUTROPHIL COUNT 15.2 K/uL (1.8-6.4); NRBC (%) 0.1 /100 WBC (0-0); PLATELET COUNT 346 K/uL (156-360); RBC DIS.WIDTH-CV 18.7 % (11.8-14.6); RBC DIS.WIDTH-SD 63.7 % (39-53); RED BLOOD COUNT 2.29 M/uL (3.80-5.20); WHITE BLOOD COUNT 17.6 K/uL (4.1-10.2)
[2017-03-04 07:54] LABS: ANION GAP 10 MEQ/L (2-14); CHLORIDE 102 MEQ/L (99-109); GFR ESTIMATE (CALCULATED) 11 mL/min/; GLUCOSE 170 mg/dL (70-99); SAMPLE HEMOLYSIS CHECK 0; SAMPLE ICTERIC CHECK 0; SAMPLE LIPEMIA CHECK 0; SODIUM 136 MEQ/L (136-147); UREA NITROGEN (BUN) 36 mg/dL (9-23)
[2017-03-04 07:55] LABS: MAGNESIUM 1.6 mg/dl (1.3-2.7)
[2017-03-04 18:26] LABS: POINT-OF-CARE METER ID UU13113731
[2017-03-04 22:27] LABS: POINT-OF-CARE METER ID UU14162636
[2017-03-05] VITALS (9 sets, daily range): BP systolic 0–135; BP diastolic 0–83
[2017-03-05 06:46] LABS: MAGNESIUM 1.7 mg/dl (1.3-2.7)
[2017-03-05 08:43] LABS: EOSINOPHIL (%) 0 % (0-5); HEMATOCRIT 27.4 % (36.0-46.0); IMMATURE GRANULOCYTE (%) 0.6 % (0.0-0.7); IMMATURE GRANULOCYTE COUNT 0.1 K/uL; INSTRUMENT ABS NEUTROPHIL CT 14.5 K/uL; LYMPHOCYTE COUNT 0.6 K/uL (1.0-2.8); MCH 31.2 PG (29.0-34.0); MCHC 33.2 G/DL (30.0-36.0); MEAN PLAT.VOLUME 10.2 uM^3 (9.5-12.4); MONOCYTE (%) 1.4 % (3-12); MONOCYTE COUNT 0.2 K/uL (0-0.8); NEUTROPHIL (%) 94.1 % (45-76); NEUTROPHIL COUNT 14.5 K/uL (1.8-6.4); PLATELET COUNT 340 K/uL (156-360); RBC DIS.WIDTH-CV 18.7 % (11.8-14.6); RBC DIS.WIDTH-SD 60.7 % (39-53); WHITE BLOOD COUNT 15.4 K/uL (4.1-10.2)
[2017-03-05 08:44] LABS: MCV 93.8 FL (83-99); RED BLOOD COUNT 2.92 M/uL (3.80-5.20)
[2017-03-05 11:31] LABS: ANION GAP 12 MEQ/L (2-14); CHLORIDE 98 MEQ/L (99-109); GFR ESTIMATE (CALCULATED) 11 mL/min/; SAMPLE HEMOLYSIS CHECK 1; SAMPLE ICTERIC CHECK 0; SAMPLE LIPEMIA CHECK 0; SODIUM 133 MEQ/L (136-147); UREA NITROGEN (BUN) 36 mg/dL (9-23)
[2017-03-05 11:32] LABS: GLUCOSE 271 mg/dL (70-99); POTASSIUM 4.9 MEQ/L (3.7-5.4)
[2017-03-06] VITALS (10 sets, daily range): BP systolic 90–134; BP diastolic 56–78
[2017-03-06 06:06] LABS: EOSINOPHIL (%) 0 % (0-5); HEMATOCRIT 28.2 % (36.0-46.0); IMMATURE GRANULOCYTE (%) 1.2 % (0.0-0.7); IMMATURE GRANULOCYTE COUNT 0.2 K/uL; INSTRUMENT ABS NEUTROPHIL CT 14.4 K/uL; LYMPHOCYTE COUNT 0.6 K/uL (1.0-2.8); MCH 29.8 PG (29.0-34.0); MCHC 31.2 G/DL (30.0-36.0); MCV 95.6 FL (83-99); MEAN PLAT.VOLUME 9.4 uM^3 (9.5-12.4); MONOCYTE (%) 2.6 % (3-12); MONOCYTE COUNT 0.4 K/uL (0-0.8); NEUTROPHIL (%) 92.1 % (45-76); NEUTROPHIL COUNT 14.4 K/uL (1.8-6.4); PLATELET COUNT 396 K/uL (156-360); RBC DIS.WIDTH-CV 19.2 % (11.8-14.6); RED BLOOD COUNT 2.95 M/uL (3.80-5.20); WHITE BLOOD COUNT 15.6 K/uL (4.1-10.2)
[2017-03-06 06:44] LABS: ANION GAP 10 MEQ/L (2-14); CHLORIDE 95 MEQ/L (99-109); GFR ESTIMATE (CALCULATED) 10 mL/min/; GLUCOSE 207 mg/dL (70-99); POTASSIUM 4.7 MEQ/L (3.7-5.4); SAMPLE HEMOLYSIS CHECK 0; SAMPLE ICTERIC CHECK 0; SAMPLE LIPEMIA CHECK 0; SODIUM 132 MEQ/L (136-147); UREA NITROGEN (BUN) 39 mg/dL (9-23)
[2017-03-06 06:45] LABS: MAGNESIUM 2.3 mg/dl (1.3-2.7)
[2017-03-06 17:48] LABS: POINT-OF-CARE METER ID UU13113803; POINT-OF-CARE USER ID 612031313
[2017-03-07] VITALS (8 sets, daily range): BP systolic 94–136; BP diastolic 55–75
[2017-03-07 05:47] LABS: EOSINOPHIL (%) 0.1 % (0-5); HEMATOCRIT 28.4 % (36.0-46.0); IMMATURE GRANULOCYTE (%) 0.8 % (0.0-0.7); IMMATURE GRANULOCYTE COUNT 0.1 K/uL; INSTRUMENT ABS NEUTROPHIL CT 10.5 K/uL; LYMPHOCYTE COUNT 0.8 K/uL (1.0-2.8); MCH 30.5 PG (29.0-34.0); MCHC 31.7 G/DL (30.0-36.0); MCV 96.3 FL (83-99); MEAN PLAT.VOLUME 9.5 uM^3 (9.5-12.4); MONOCYTE (%) 7.6 % (3-12); MONOCYTE COUNT 0.9 K/uL (0-0.8); NEUTROPHIL (%) 85.2 % (45-76); NEUTROPHIL COUNT 10.5 K/uL (1.8-6.4); PLATELET COUNT 470 K/uL (156-360); RBC DIS.WIDTH-CV 19.7 % (11.8-14.6); RBC DIS.WIDTH-SD 62.3 % (39-53); RED BLOOD COUNT 2.95 M/uL (3.80-5.20); WHITE BLOOD COUNT 12.4 K/uL (4.1-10.2)
[2017-03-07 06:11] LABS: ANION GAP 13 MEQ/L (2-14); CHLORIDE 93 MEQ/L (99-109); GFR ESTIMATE (CALCULATED) 10 mL/min/; GLUCOSE 165 mg/dL (70-99); POTASSIUM 5.5 MEQ/L (3.7-5.4); SAMPLE HEMOLYSIS CHECK 0; SAMPLE ICTERIC CHECK 0; SAMPLE LIPEMIA CHECK 0; SODIUM 129 MEQ/L (136-147); UREA NITROGEN (BUN) 48 mg/dL (9-23)
[2017-03-07 12:27] LABS: POINT-OF-CARE METER ID UU13113731
[2017-03-07 18:54] LABS: POINT-OF-CARE METER ID UU13113731
[2017-03-07 22:04] LABS: POINT-OF-CARE METER ID UU13113731
[2017-03-08] VITALS (15 sets, daily range): BP systolic 72–131; BP diastolic 41–83
[2017-03-08 05:47] LABS: EOSINOPHIL (%) 0.1 % (0-5); HEMATOCRIT 29.8 % (36.0-46.0); IMMATURE GRANULOCYTE (%) 1.2 % (0.0-0.7); IMMATURE GRANULOCYTE COUNT 0.2 K/uL; INSTRUMENT ABS NEUTROPHIL CT 10.9 K/uL; MCH 30.3 PG (29.0-34.0); MCHC 30.9 G/DL (30.0-36.0); MEAN PLAT.VOLUME 9.2 uM^3 (9.5-12.4); MONOCYTE (%) 10.2 % (3-12); MONOCYTE COUNT 1.4 K/uL (0-0.8); NEUTROPHIL (%) 81.1 % (45-76); NEUTROPHIL COUNT 10.9 K/uL (1.8-6.4); PLATELET COUNT 521 K/uL (156-360); RBC DIS.WIDTH-CV 19.7 % (11.8-14.6); RBC DIS.WIDTH-SD 65.1 % (39-53); RED BLOOD COUNT 3.04 M/uL (3.80-5.20); WHITE BLOOD COUNT 13.4 K/uL (4.1-10.2)
[2017-03-08 06:10] LABS: ANION GAP 14 MEQ/L (2-14); CHLORIDE 91 MEQ/L (99-109); GFR ESTIMATE (CALCULATED) 9 mL/min/; GLUCOSE 243 mg/dL (70-99); MAGNESIUM 1.9 mg/dl (1.3-2.7); POTASSIUM 5.6 MEQ/L (3.7-5.4); SAMPLE HEMOLYSIS CHECK 0; SAMPLE ICTERIC CHECK 0; SAMPLE LIPEMIA CHECK 0; SODIUM 128 MEQ/L (136-147); UREA NITROGEN (BUN) 54 mg/dL (9-23)
[2017-03-08 12:24] LABS: POINT-OF-CARE METER ID UU13113731
[2017-03-08 16:21] LABS: POINT-OF-CARE METER ID UU14174217
[2017-03-08 22:30] LABS: POINT-OF-CARE METER ID UU14174217; POINT-OF-CARE USER ID RADDRS44
[2017-03-09] VITALS (15 sets, daily range): BP systolic 72–119; BP diastolic 41–67
[2017-03-09 06:07] LABS: EOSINOPHIL (%) 0.8 % (0-5); EOSINOPHIL COUNT 0.1 K/uL (0-0.3); IMMATURE GRANULOCYTE (%) 1.3 % (0.0-0.7); IMMATURE GRANULOCYTE COUNT 0.2 K/uL; INSTRUMENT ABS NEUTROPHIL CT 11.4 K/uL; LYMPHOCYTE COUNT 0.6 K/uL (1.0-2.8); MCH 30.3 PG (29.0-34.0); MCHC 31.6 G/DL (30.0-36.0); MEAN PLAT.VOLUME 9.3 uM^3 (9.5-12.4); MONOCYTE (%) 8.7 % (3-12); MONOCYTE COUNT 1.2 K/uL (0-0.8); NEUTROPHIL (%) 84.3 % (45-76); NEUTROPHIL COUNT 11.4 K/uL (1.8-6.4); NRBC (%) 0.1 /100 WBC (0-0); PLATELET COUNT 511 K/uL (156-360); RBC DIS.WIDTH-CV 19.1 % (11.8-14.6); RBC DIS.WIDTH-SD 63.6 % (39-53); RED BLOOD COUNT 3.23 M/uL (3.80-5.20); WHITE BLOOD COUNT 13.5 K/uL (4.1-10.2)
[2017-03-09 06:30] LABS: ANION GAP 15 MEQ/L (2-14); CHLORIDE 89 MEQ/L (99-109); GFR ESTIMATE (CALCULATED) 9 mL/min/; GLUCOSE 136 mg/dL (70-99); MAGNESIUM 1.8 mg/dl (1.3-2.7); POTASSIUM 5.4 MEQ/L (3.7-5.4); SAMPLE HEMOLYSIS CHECK 0; SAMPLE ICTERIC CHECK 0; SAMPLE LIPEMIA CHECK 0; SODIUM 128 MEQ/L (136-147); UREA NITROGEN (BUN) 51 mg/dL (9-23)
[2017-03-09 13:07] LABS: POINT-OF-CARE METER ID UU14162636; POINT-OF-CARE USER ID 606021424
[2017-03-09 17:53] LABS: POINT-OF-CARE METER ID UU14162636
[2017-03-09 22:46] LABS: POINT-OF-CARE METER ID UU14162636; POINT-OF-CARE USER ID RADDRS44
[2017-03-10] VITALS (19 sets, daily range): BP systolic 88–158; BP diastolic 50–90
[2017-03-10 06:10] LABS: HEMATOCRIT 28.4 % (36.0-46.0); MCH 30.4 PG (29.0-34.0); MCHC 31.3 G/DL (30.0-36.0); MCV 96.9 FL (83-99); MEAN PLAT.VOLUME 9.2 uM^3 (9.5-12.4); PLATELET COUNT 508 K/uL (156-360); RBC DIS.WIDTH-CV 19.6 % (11.8-14.6); RBC DIS.WIDTH-SD 66.8 % (39-53); RED BLOOD COUNT 2.93 M/uL (3.80-5.20); WHITE BLOOD COUNT 12.1 K/uL (4.1-10.2)
[2017-03-10 06:27] LABS: ANION GAP 15 MEQ/L (2-14); CHLORIDE 90 MEQ/L (99-109); GFR ESTIMATE (CALCULATED) 10 mL/min/; GLUCOSE 173 mg/dL (70-99); MAGNESIUM 1.8 mg/dl (1.3-2.7); POTASSIUM 5.2 MEQ/L (3.7-5.4); SAMPLE HEMOLYSIS CHECK 0; SAMPLE ICTERIC CHECK 0; SAMPLE LIPEMIA CHECK 0; SODIUM 129 MEQ/L (136-147); UREA NITROGEN (BUN) 51 mg/dL (9-23)
[2017-03-10 08:42] LABS: EOSINOPHIL (%) 0.7 % (0-5); EOSINOPHIL COUNT 0.1 K/uL (0-0.3); HEMATOLOGY COMMENT 1 SMEAR COMPATIBLE; IMMATURE GRANULOCYTE (%) 1.1 % (0.0-0.7); IMMATURE GRANULOCYTE COUNT 0.1 K/uL; INSTRUMENT ABS NEUTROPHIL CT 10.2 K/uL; LYMPHOCYTE COUNT 0.7 K/uL (1.0-2.8); MONOCYTE (%) 7.7 % (3-12); MONOCYTE COUNT 0.9 K/uL (0-0.8); NEUTROPHIL (%) 84.4 % (45-76); NEUTROPHIL COUNT 10.2 K/uL (1.8-6.4)
[2017-03-10 09:21] LABS: POINT-OF-CARE METER ID UU14162636
[2017-03-10 13:01] LABS: POINT-OF-CARE METER ID UU13113803
[2017-03-10 16:04] LABS: POINT-OF-CARE METER ID UU13113725
[2017-03-10 21:00] LABS: POINT-OF-CARE METER ID UU13113725
[2017-03-11] VITALS (11 sets, daily range): BP systolic 105–138; BP diastolic 55–72
[2017-03-11 06:12] LABS: POINT-OF-CARE METER ID UU13113725
[2017-03-11 07:37] LABS: EOSINOPHIL (%) 0.5 % (0-5); EOSINOPHIL COUNT 0.1 K/uL (0-0.3); IMMATURE GRANULOCYTE (%) 1.1 % (0.0-0.7); IMMATURE GRANULOCYTE COUNT 0.1 K/uL; INSTRUMENT ABS NEUTROPHIL CT 9.3 K/uL; LYMPHOCYTE COUNT 0.9 K/uL (1.0-2.8); MCH 30.9 PG (29.0-34.0); MCHC 31.8 G/DL (30.0-36.0); MCV 97.1 FL (83-99); MEAN PLAT.VOLUME 8.9 uM^3 (9.5-12.4); MONOCYTE (%) 7.8 % (3-12); MONOCYTE COUNT 0.9 K/uL (0-0.8); NEUTROPHIL (%) 82.3 % (45-76); NEUTROPHIL COUNT 9.3 K/uL (1.8-6.4); PLATELET COUNT 551 K/uL (156-360); WHITE BLOOD COUNT 11.3 K/uL (4.1-10.2)
[2017-03-11 07:54] LABS: ANION GAP 14 MEQ/L (2-14); CHLORIDE 91 MEQ/L (99-109); GFR ESTIMATE (CALCULATED) 10 mL/min/; GLUCOSE 192 mg/dL (70-99); IRON 158 MCG/DL (35-150); MAGNESIUM 1.9 mg/dl (1.3-2.7); SAMPLE HEMOLYSIS CHECK 0; SAMPLE ICTERIC CHECK 0; SAMPLE LIPEMIA CHECK 0; SODIUM 129 MEQ/L (136-147); UREA NITROGEN (BUN) 50 mg/dL (9-23)
[2017-03-12] VITALS (8 sets, daily range): BP systolic 80–114; BP diastolic 50–79
[2017-03-12 05:54] LABS: POINT-OF-CARE METER ID UU13113725
[2017-03-12 06:57] LABS: EOSINOPHIL (%) 2.3 % (0-5); EOSINOPHIL COUNT 0.2 K/uL (0-0.3); HEMATOCRIT 29.6 % (36.0-46.0); IMMATURE GRANULOCYTE (%) 1.2 % (0.0-0.7); IMMATURE GRANULOCYTE COUNT 0.1 K/uL; INSTRUMENT ABS NEUTROPHIL CT 7.5 K/uL; LYMPHOCYTE COUNT 1.1 K/uL (1.0-2.8); MCH 30.5 PG (29.0-34.0); MCHC 31.1 G/DL (30.0-36.0); MEAN PLAT.VOLUME 9.2 uM^3 (9.5-12.4); MONOCYTE (%) 8.8 % (3-12); MONOCYTE COUNT 0.9 K/uL (0-0.8); NEUTROPHIL (%) 76.6 % (45-76); NEUTROPHIL COUNT 7.5 K/uL (1.8-6.4); NRBC (%) 0.2 /100 WBC (0-0); PLATELET COUNT 472 K/uL (156-360); RBC DIS.WIDTH-CV 19.7 % (11.8-14.6); RBC DIS.WIDTH-SD 69.1 % (39-53); RED BLOOD COUNT 3.02 M/uL (3.80-5.20); WHITE BLOOD COUNT 9.7 K/uL (4.1-10.2)
[2017-03-12 06:59] LABS: ANION GAP 14 MEQ/L (2-14); CHLORIDE 91 MEQ/L (99-109); GFR ESTIMATE (CALCULATED) 10 mL/min/; GLUCOSE 127 mg/dL (70-99); MAGNESIUM 1.8 mg/dl (1.3-2.7); POTASSIUM 4.8 MEQ/L (3.7-5.4); SAMPLE HEMOLYSIS CHECK 0; SAMPLE ICTERIC CHECK 0; SAMPLE LIPEMIA CHECK 0; SODIUM 133 MEQ/L (136-147); UREA NITROGEN (BUN) 51 mg/dL (9-23)
[2017-03-12] MEDS ORDERED: PEN-VEE K,VEET500 MG PO (09:44)
[2017-03-12] MEDS ORDERED: MIDODRINE HCL5 MG PO (09:44)
[2017-03-12] MEDS ORDERED: ARANESP60 MCG/0.3 SC (09:44)
[2017-03-12] MEDS ORDERED: LEVEMIR100 UNIT/2 SC (09:45)
[2017-03-12] MEDS ORDERED: NOVOLOG PE100 UNITS/ SC (09:45)
[2017-03-12 11:19] LABS: POINT-OF-CARE METER ID UU13113725
[2017-03-12 21:22] LABS: POINT-OF-CARE METER ID UU13113725
[2017-03-13 04:21] VITALS: BP 98/58
[2017-03-13 07:15] LABS: ANION GAP 14 MEQ/L (2-14); CHLORIDE 93 MEQ/L (99-109); GFR ESTIMATE (CALCULATED) 9 mL/min/; GLUCOSE 114 mg/dL (70-99); MAGNESIUM 1.8 mg/dl (1.3-2.7); POTASSIUM 4.1 MEQ/L (3.7-5.4); SAMPLE HEMOLYSIS CHECK 0; SAMPLE ICTERIC CHECK 0; SAMPLE LIPEMIA CHECK 0; SODIUM 133 MEQ/L (136-147); UREA NITROGEN (BUN) 49 mg/dL (9-23)
[2017-03-13 07:24] LABS: BASOPHIL COUNT 0.1 K/uL (0-0.1); EOSINOPHIL (%) 0.8 % (0-5); EOSINOPHIL COUNT 0.1 K/uL (0-0.3); HEMATOCRIT 30.2 % (36.0-46.0); IMMATURE GRANULOCYTE (%) 0.8 % (0.0-0.7); IMMATURE GRANULOCYTE COUNT 0.1 K/uL; INSTRUMENT ABS NEUTROPHIL CT 11.9 K/uL; MCH 30.9 PG (29.0-34.0); MCHC 31.8 G/DL (30.0-36.0); MCV 97.1 FL (83-99); MEAN PLAT.VOLUME 8.6 uM^3 (9.5-12.4); MONOCYTE (%) 6.8 % (3-12); NEUTROPHIL COUNT 11.9 K/uL (1.8-6.4); PLATELET COUNT 442 K/uL (156-360); RBC DIS.WIDTH-CV 19.9 % (11.8-14.6); RBC DIS.WIDTH-SD 69.7 % (39-53); RED BLOOD COUNT 3.11 M/uL (3.80-5.20)
[2017-03-13 07:37] LABS: WHITE BLOOD COUNT 14.2 K/uL (4.1-10.2)
[2017-03-13 09:56] VITALS: BP 103/60
[2017-03-13] MEDS ORDERED: PREDNISONE20 MG PO (10:54)
[2017-03-13 11:51] LABS: POINT-OF-CARE METER ID UU13113725
== END 2017-03-13 15:08 | DRG 166 ==
LOC: EME 17:43 → 5EAST 19:35 → 4WEST 19:35 → EDOF 19:35 → 4WEST 21:32 → 5EAST 03-10 15:48
PROVIDERS: Emergency Medicine; Hospitalist; Internal Medicine; Internal Medicine Critical Care Medicine; Internal Medicine Nephrology; Internal Medicine Pulmonary Disease; Specialist; Surgery Surgical Critical Care
DX: J96.01 Acute respiratory failure with hypoxia (principal); J13 Pneumonia due to Streptococcus pneumoniae; R78.81 Bacteremia; B95.3 Streptococcus pneumoniae as the cause of diseases classified elsewhere; R57.8 Other shock; J86.9 Pyothorax without fistula; I13.2 Hypertensive heart and chronic kidney disease with heart failure and with stage 5 chronic kidney disease, or end stage renal disease; I50.22 Chronic systolic (congestive) heart failure; N18.6 End stage renal disease; I25.10 Atherosclerotic heart disease of native coronary artery without angina pectoris; I25.5 Ischemic cardiomyopathy; E87.5 Hyperkalemia; R64 Cachexia; K56.7 Ileus, unspecified; E87.6 Hypokalemia; E87.1 Hypo-osmolality and hyponatremia; J90 Pleural effusion, not elsewhere classified; E87.2 Acidosis; I27.2 Other secondary pulmonary hypertension; D63.1 Anemia in chronic kidney disease; E11.22 Type 2 diabetes mellitus with diabetic chronic kidney disease; E11.21 Type 2 diabetes mellitus with diabetic nephropathy; N25.81 Secondary hyperparathyroidism of renal origin; J98.11 Atelectasis; E83.39 Other disorders of phosphorus metabolism; I45.10 Unspecified right bundle-branch block; I08.0 Rheumatic disorders of both mitral and aortic valves; E78.2 Mixed hyperlipidemia; E03.9 Hypothyroidism, unspecified; K59.00 Constipation, unspecified; Z91.15 Patient's noncompliance with renal dialysis; Z99.2 Dependence on renal dialysis; Z95.1 Presence of aortocoronary bypass graft; Z79.4 Long term (current) use of insulin; Z87.891 Personal history of nicotine dependence
CPT/HCPCS: 36600; 36620; 71010; 74000; 74177; 76604; 80048; 80048 91; 80053; 80069; 80076; 81003; 81256 90; 82150; 82150 91; 82272; 82330; 82533 91; 82607; 82728; 82746; 82803; 82948; 83010 90; 83540; 83605; 83615; 83615 91; 83690; 83735; 83880; 84100; 84145 90; 84157; 84443; 84466; 84484; 85014; 85018; 85025; 85025 91; 85027; 85045; 85610; 85730; 86850; 86860; 86870; 86880; 86900; 86901; 86905; 86920; 87040; 87070; 87075; 87077; 87081; 87116; 87181; 87205; 87206; 87502; 87641; 87801; 88108; 88305; 89051; 92526 GN; 92610 GN; 93005; 93306; 94002; 94003; 94010; 94640; 94640 76; 94644; 94760; 94799; 97530 GO; 97530 GP; 99202; 99281; 99285; C9113; J0610; J0696; J0881; J1630; J1644; J1720; J1815; J1940; J2540; J2543; J3370; J3475; J7040; J7050; J7512; J8540; P9016; P9045; P9047

== ENCOUNTER 2017-11-07 14:29 | Inpatient (IN) | payer OTHER, MEDICARE ==
[~2017-11-07] VITALS: Ht 157.5 cm; Wt 57.0 kg
[~2017-11-07 14:29] MED LIST changes: +ARANESP60 MCG/0.3 SC; +LEVEMIR100 UNIT/2 SC; +LISINOPRIL5 MG PO; +MIDODRINE HCL5 MG PO; +NOVOLOG PE100 UNITS/ SC; +PEN-VEE K,VEET500 MG PO; +PREDNISONE20 MG PO
[2017-11-07 15:23] LABS: HEMOGLOBIN 10.7 G/DL (11.9-15.5); MCH 28.8 PG (29.0-34.0); MCHC 31.5 G/DL (30.0-36.0); MCV 91.6 FL (83-99); PLATELET COUNT 253 K/uL (156-360); RBC DIS.WIDTH-CV 16.2 % (11.8-14.6); RBC DIS.WIDTH-SD 53.9 % (39-53); RED BLOOD COUNT 3.71 M/uL (3.80-5.20); WHITE BLOOD COUNT 5.1 K/uL (4.1-10.2)
[2017-11-07 15:32] LABS: CHLORIDE 104 mEq/L (99-109); POTASSIUM 4.3 mEq/L (3.7-5.4); SODIUM 137 mEq/L (136-147)
[2017-11-07 15:33] LABS: GLUCOSE 91 mg/dL (70-99)
[2017-11-07 15:37] LABS: CREATININE 5.6 mg/dL (0.6-1.3); GFR ESTIMATE (CALCULATED) 8 mL/min/
[2017-11-07 15:38] LABS: UREA NITROGEN (BUN) 36 mg/dL (9-23)
[2017-11-07] MEDS ORDERED: LEVEMIR100 UNIT/2 SC (17:15)
[2017-11-07] MEDS ORDERED: CARDIZEM CD120 M1 PO (17:16)
[2017-11-07] MEDS ORDERED: METOPROLOL SUC100 MG PO (17:16)
[2017-11-07] MEDS ORDERED: AZITHROMYCIN250 MG1 PO (17:16)
[2017-11-07] MEDS ORDERED: MECLIZINE HCL25 MG PO (17:16)
[2017-11-07] MEDS ORDERED: CALCITRIOL0.25 MCG PO (17:17)
[2017-11-07] MEDS ORDERED: ZOFRAN4 MG PO (17:17)
[2017-11-07 21:27] VITALS: BP 90/50
[2017-11-08 01:50] VITALS: BP 119/54
[2017-11-08 03:07] LABS: TYPE OF FLUID PD FLUID
[2017-11-08 04:05] VITALS: BP 96/51
[2017-11-08 05:19] LABS: APPEARANCE CLEAR/COLORLESS
[2017-11-08 05:20] LABS: BODY FLUID RBC'S 20 /MM^3 (0-100); BODY FLUID WBC'S 33 /MM^3 (0-500)
[2017-11-08 05:32] LABS: BODY FLUID EOSINOPHILS 1 % (0-25); MONONUCLEAR WBC'S 90 %; POLYNUCLEAR WBC'S 9 % (0-25)
[2017-11-08 07:15] VITALS: BP 116/54
[2017-11-08 08:16] LABS: HEMATOCRIT 32.4 % (36.0-46.0); HEMOGLOBIN 9.9 G/DL (11.9-15.5); MCHC 30.6 G/DL (30.0-36.0); MCV 91.5 FL (83-99); PLATELET COUNT 250 K/uL (156-360); RBC DIS.WIDTH-CV 16.2 % (11.8-14.6); RED BLOOD COUNT 3.54 M/uL (3.80-5.20); WHITE BLOOD COUNT 6.4 K/uL (4.1-10.2)
[2017-11-08 08:47] LABS: CHLORIDE 101 MEQ/L (99-109); CREATININE 5.5 MG/DL (0.6-1.3); GFR ESTIMATE (CALCULATED) 8 mL/min/; POTASSIUM 3.7 MEQ/L (3.7-5.4); SODIUM 140 MEQ/L (136-147); UREA NITROGEN (BUN) 34 mg/dL (9-23)
[2017-11-08 08:53] LABS: GLUCOSE 115 mg/dL (70-99)
[2017-11-08 09:06] LABS: BASOPHIL (%) 0.3 % (0-1); EOSINOPHIL (%) 0.9 % (0-5); EOSINOPHIL COUNT 0.1 K/uL (0-0.3); IMMATURE GRANULOCYTE (%) 0.3 % (0.0-0.7); LYMPHOCYTE (%) 11.6 % (15-42); LYMPHOCYTE COUNT 0.7 K/uL (1.0-2.8); MONOCYTE (%) 11.1 % (3-12); MONOCYTE COUNT 0.7 K/uL (0-0.8); NEUTROPHIL (%) 75.8 % (45-76); NEUTROPHIL COUNT 4.9 K/uL (1.8-6.4)
[2017-11-08 11:15] VITALS: BP 89/42
[2017-11-08 19:23] VITALS: BP 95/68
[2017-11-08 23:55] VITALS: BP 100/39
[2017-11-09] VITALS (10 sets, daily range): BP systolic 0–170; BP diastolic 0–129
[2017-11-09 06:21] LABS: ALBUMIN 1.7 G/DL (3.2-4.8); CHLORIDE 107 MEQ/L (99-109); CREATININE 6.2 MG/DL (0.6-1.3); GFR ESTIMATE (CALCULATED) 7 mL/min/; GLUCOSE 92 mg/dL (70-99); PHOSPHORUS 6.3 mg/dL (2.5-4.9); POTASSIUM 4.3 MEQ/L (3.7-5.4); SODIUM 141 MEQ/L (136-147); UREA NITROGEN (BUN) 41 mg/dL (9-23)
[2017-11-09 06:23] LABS: BASOPHIL (%) 0.3 % (0-1); EOSINOPHIL (%) 0 % (0-5); HEMATOCRIT 17.6 % (36.0-46.0); IMMATURE GRANULOCYTE (%) 0.5 % (0.0-0.7); LYMPHOCYTE (%) 7.7 % (15-42); LYMPHOCYTE COUNT 0.6 K/uL (1.0-2.8); MCH 28.3 PG (29.0-34.0); MCHC 30.7 G/DL (30.0-36.0); MCV 92.1 FL (83-99); MONOCYTE COUNT 0.8 K/uL (0-0.8); NEUTROPHIL (%) 81.5 % (45-76); NEUTROPHIL COUNT 6.3 K/uL (1.8-6.4); PLATELET COUNT 228 K/uL (156-360); RBC DIS.WIDTH-CV 16.1 % (11.8-14.6); RBC DIS.WIDTH-SD 54.1 % (39-53); WHITE BLOOD COUNT 7.8 K/uL (4.1-10.2)
[2017-11-09 06:24] LABS: RED BLOOD COUNT 1.91 M/uL (3.80-5.20)
[2017-11-09 06:25] LABS: HEMOGLOBIN 5.4 G/DL (11.9-15.5)
[2017-11-09 08:31] LABS: ALKALINE PHOSPHATASE 54 IU/L (3-129); ALT (GPT) 5 IU/L (3-49); AST (GOT) 13 IU/L (2-34); TOTAL BILIRUBIN 0.3 MG/DL (0.0-1.0); TOTAL PROTEIN 3.9 G/DL (6.4-8.3)
[2017-11-09 19:02] LABS: HEMATOCRIT 23.1 % (36.0-46.0); MCH 29.9 PG (29.0-34.0); MCHC 32.9 G/DL (30.0-36.0); MCV 90.9 FL (83-99); PLATELET COUNT 225 K/uL (156-360); RBC DIS.WIDTH-CV 14.9 % (11.8-14.6); RBC DIS.WIDTH-SD 49.3 % (39-53); WHITE BLOOD COUNT 19.7 K/uL (4.1-10.2)
[2017-11-09 19:03] LABS: HEMOGLOBIN 7.6 G/DL (11.9-15.5); RED BLOOD COUNT 2.54 M/uL (3.80-5.20)
[2017-11-09 19:20] LABS: CHLORIDE 109 mEq/L (99-109); SODIUM 140 mEq/L (136-147); TROP-I INTERPRETATION INDETERMINATE; TROPONIN-I 0.58 ng/mL (0.0-0.30)
[2017-11-09 19:25] LABS: CREATININE 6.1 mg/dL (0.6-1.3); GFR ESTIMATE (CALCULATED) 8 mL/min/
[2017-11-09 19:26] LABS: UREA NITROGEN (BUN) 42 mg/dL (9-23)
[2017-11-09 19:36] LABS: GLUCOSE 259 mg/dL (70-99)
[2017-11-09 22:25] LABS: BASOPHIL (%) 0.2 % (0-1); EOSINOPHIL (%) 0 % (0-5); HEMATOCRIT 22.9 % (36.0-46.0); HEMOGLOBIN 7.4 G/DL (11.9-15.5); LYMPHOCYTE (%) 4.2 % (15-42); LYMPHOCYTE COUNT 0.8 K/uL (1.0-2.8); MCH 29.6 PG (29.0-34.0); MCHC 32.3 G/DL (30.0-36.0); MCV 91.6 FL (83-99); MONOCYTE (%) 9.7 % (3-12); MONOCYTE COUNT 1.9 K/uL (0-0.8); NEUTROPHIL (%) 84.9 % (45-76); NRBC (%) 0.1 /100 WBC (0-0); PLATELET COUNT 264 K/uL (156-360); RBC DIS.WIDTH-CV 15.1 % (11.8-14.6); RBC DIS.WIDTH-SD 49.8 % (39-53)
[2017-11-09 22:34] LABS: INTER. NORMALIZED RATIO 1.5
[2017-11-09 22:37] LABS: PTT 24.4 SEC (25-37)
[2017-11-09 22:45] LABS: CHLORIDE 109 MEQ/L (99-109); CREATININE 5.9 MG/DL (0.6-1.3); GFR ESTIMATE (CALCULATED) 8 mL/min/; GLUCOSE 226 mg/dL (70-99); MAGNESIUM 1.9 mg/dl (1.3-2.7); POTASSIUM 5.3 MEQ/L (3.7-5.4); SODIUM 140 MEQ/L (136-147); UREA NITROGEN (BUN) 45 mg/dL (9-23)
[2017-11-10] VITALS (18 sets, daily range): BP systolic 58–161; BP diastolic 38–128
[2017-11-10 06:15] LABS: ALBUMIN 1.8 G/DL (3.2-4.8); CHLORIDE 110 MEQ/L (99-109); CREATININE 6.4 MG/DL (0.6-1.3); GFR ESTIMATE (CALCULATED) 7 mL/min/; GLUCOSE 121 mg/dL (70-99); PHOSPHORUS 8.6 mg/dL (2.5-4.9); POTASSIUM 5.4 MEQ/L (3.7-5.4); SODIUM 142 MEQ/L (136-147); UREA NITROGEN (BUN) 47 mg/dL (9-23); VANCOMYCIN, TROUGH 26.2 MCG/ML (10-20)
[2017-11-10 06:18] LABS: BASOPHIL (%) 0.1 % (0-1); EOSINOPHIL (%) 0 % (0-5); HEMATOCRIT 19.9 % (36.0-46.0); IMMATURE GRANULOCYTE (%) 0.8 % (0.0-0.7); LYMPHOCYTE (%) 4.7 % (15-42); LYMPHOCYTE COUNT 0.8 K/uL (1.0-2.8); MCHC 32.7 G/DL (30.0-36.0); MCV 91.7 FL (83-99); MONOCYTE (%) 10.7 % (3-12); MONOCYTE COUNT 1.7 K/uL (0-0.8); NEUTROPHIL (%) 83.7 % (45-76); NEUTROPHIL COUNT 13.2 K/uL (1.8-6.4); NRBC (%) 0.1 /100 WBC (0-0); PLATELET COUNT 256 K/uL (156-360); RBC DIS.WIDTH-CV 15.6 % (11.8-14.6); RBC DIS.WIDTH-SD 51.6 % (39-53); RED BLOOD COUNT 2.17 M/uL (3.80-5.20); WHITE BLOOD COUNT 15.8 K/uL (4.1-10.2)
[2017-11-10 06:19] LABS: HEMOGLOBIN 6.5 G/DL (11.9-15.5)
[2017-11-10 06:26] LABS: TROP-I INTERPRETATION POSITIVE; TROPONIN-I 1.64 ng/mL (0.0-0.30)
[2017-11-10 06:39] LABS: ALBUMIN 1.8 G/DL (3.2-4.8); ALKALINE PHOSPHATASE 46 IU/L (3-129); CHLORIDE 112 MEQ/L (99-109); CREATININE 5.9 MG/DL (0.6-1.3); GFR ESTIMATE (CALCULATED) 8 mL/min/; GLUCOSE 121 mg/dL (70-99); POTASSIUM 5.5 MEQ/L (3.7-5.4); SODIUM 145 MEQ/L (136-147); TOTAL BILIRUBIN 0.3 MG/DL (0.0-1.0); TOTAL PROTEIN 4.1 G/DL (6.4-8.3); UREA NITROGEN (BUN) 49 mg/dL (9-23)
[2017-11-10 06:52] LABS: ALT (GPT) 13 IU/L (3-49); AST (GOT) 52 IU/L (2-34)
[2017-11-10 11:19] LABS: TROP-I INTERPRETATION POSITIVE
[2017-11-10 11:25] LABS: BASOPHIL (%) 0.4 % (0-1); EOSINOPHIL (%) 0 % (0-5); HEMOGLOBIN 10.3 G/DL (11.9-15.5); IMMATURE GRANULOCYTE (%) 1.1 % (0.0-0.7); LYMPHOCYTE COUNT 0.5 K/uL (1.0-2.8); MCH 29.3 PG (29.0-34.0); MCHC 33.2 G/DL (30.0-36.0); MCV 88.3 FL (83-99); MONOCYTE (%) 10.7 % (3-12); MONOCYTE COUNT 1.2 K/uL (0-0.8); NEUTROPHIL (%) 83.8 % (45-76); NEUTROPHIL COUNT 9.4 K/uL (1.8-6.4); NRBC (%) 0.2 /100 WBC (0-0); PLATELET COUNT 217 K/uL (156-360); RBC DIS.WIDTH-CV 14.7 % (11.8-14.6); RBC DIS.WIDTH-SD 46.4 % (39-53); RED BLOOD COUNT 3.51 M/uL (3.80-5.20); WHITE BLOOD COUNT 11.2 K/uL (4.1-10.2)
[2017-11-10 17:07] LABS: TROP-I INTERPRETATION POSITIVE; TROPONIN-I 2.01 ng/mL (0.0-0.30)
[2017-11-11] VITALS (22 sets, daily range): BP systolic 0–125; BP diastolic 0–78
[2017-11-11 05:40] LABS: BASOPHIL (%) 0.2 % (0-1); EOSINOPHIL (%) 0 % (0-5); HEMATOCRIT 25.5 % (36.0-46.0); HEMOGLOBIN 8.4 G/DL (11.9-15.5); IMMATURE GRANULOCYTE (%) 1.4 % (0.0-0.7); LYMPHOCYTE (%) 3.9 % (15-42); LYMPHOCYTE COUNT 0.5 K/uL (1.0-2.8); MCH 28.8 PG (29.0-34.0); MCHC 32.9 G/DL (30.0-36.0); MCV 87.3 FL (83-99); MONOCYTE (%) 10.1 % (3-12); MONOCYTE COUNT 1.3 K/uL (0-0.8); NEUTROPHIL (%) 84.4 % (45-76); NEUTROPHIL COUNT 10.9 K/uL (1.8-6.4); NRBC (%) 0.6 /100 WBC (0-0); PLATELET COUNT 209 K/uL (156-360); RBC DIS.WIDTH-CV 15.6 % (11.8-14.6); RBC DIS.WIDTH-SD 49.8 % (39-53); RED BLOOD COUNT 2.92 M/uL (3.80-5.20); WHITE BLOOD COUNT 12.9 K/uL (4.1-10.2)
[2017-11-11 06:12] LABS: ALKALINE PHOSPHATASE 47 IU/L (3-129); ALT (GPT) 5 IU/L (3-49); AST (GOT) 72 IU/L (2-34); CHLORIDE 102 MEQ/L (99-109); CHLORIDE 105 MEQ/L (99-109); GFR ESTIMATE (CALCULATED) 6 mL/min/; GLUCOSE 136 mg/dL (70-99); GLUCOSE 137 mg/dL (70-99); PHOSPHORUS 8.9 mg/dL (2.5-4.9); POTASSIUM 5.5 MEQ/L (3.7-5.4); POTASSIUM 5.6 MEQ/L (3.7-5.4); SODIUM 141 MEQ/L (136-147); TOTAL BILIRUBIN 0.3 MG/DL (0.0-1.0); TOTAL PROTEIN 4.6 G/DL (6.4-8.3); UREA NITROGEN (BUN) 60 mg/dL (9-23)
[2017-11-11 06:13] LABS: CREATININE 7.5 MG/DL (0.6-1.3); GFR ESTIMATE (CALCULATED) 6 mL/min/; SODIUM 136 MEQ/L (136-147)
[2017-11-11 12:56] LABS: HEPATITIS B SURFACE ANTIGEN Nonreactive
[2017-11-11 12:57] LABS: HEPATITIS C ANTIBODY Nonreactive
[2017-11-11 12:58] LABS: ANTI-HEPATITIS B CORE (TOTAL) Nonreactive
[2017-11-11 12:59] LABS: HEPATITIS B SURFACE ANTIBODY REACTIVE
[2017-11-12] VITALS (11 sets, daily range): BP systolic 107–159; BP diastolic 63–93
[2017-11-12 05:00] LABS: BASOPHIL (%) 0.2 % (0-1); EOSINOPHIL (%) 0.1 % (0-5); HEMATOCRIT 34.6 % (36.0-46.0); IMMATURE GRANULOCYTE (%) 2.1 % (0.0-0.7); LYMPHOCYTE (%) 4.6 % (15-42); LYMPHOCYTE COUNT 0.6 K/uL (1.0-2.8); MCHC 33.8 G/DL (30.0-36.0); MCV 85.9 FL (83-99); NEUTROPHIL COUNT 10.9 K/uL (1.8-6.4); NRBC (%) 1.2 /100 WBC (0-0); PLATELET COUNT 189 K/uL (156-360); RBC DIS.WIDTH-SD 46.9 % (39-53); WHITE BLOOD COUNT 12.8 K/uL (4.1-10.2)
[2017-11-12 05:01] LABS: HEMOGLOBIN 11.7 G/DL (11.9-15.5); RED BLOOD COUNT 4.03 M/uL (3.80-5.20)
[2017-11-12 05:11] LABS: CHLORIDE 102 mEq/L (99-109); MAGNESIUM 1.9 mg/dL (1.3-2.7); SODIUM 140 mEq/L (136-147)
[2017-11-12 05:13] LABS: GLUCOSE 124 mg/dL (70-99)
[2017-11-12 05:16] LABS: PHOSPHORUS 5.9 mg/dL (2.5-4.9)
[2017-11-12 05:25] LABS: CREATININE 4.3 mg/dL (0.6-1.3); GFR ESTIMATE (CALCULATED) 11 mL/min/; POTASSIUM 4.3 mEq/L (3.7-5.4); UREA NITROGEN (BUN) 28 mg/dL (9-23)
[2017-11-13] VITALS (7 sets, daily range): BP systolic 90–146; BP diastolic 54–73
[2017-11-13 05:24] LABS: BASOPHIL (%) 0.3 % (0-1); BASOPHIL COUNT 0.1 K/uL (0-0.1); EOSINOPHIL (%) 0.1 % (0-5); HEMATOCRIT 34.9 % (36.0-46.0); HEMOGLOBIN 11.1 G/DL (11.9-15.5); IMMATURE GRANULOCYTE (%) 2.6 % (0.0-0.7); LYMPHOCYTE COUNT 0.8 K/uL (1.0-2.8); MCH 28.4 PG (29.0-34.0); MCHC 31.8 G/DL (30.0-36.0); MCV 89.3 FL (83-99); MONOCYTE (%) 7.2 % (3-12); MONOCYTE COUNT 1.2 K/uL (0-0.8); NEUTROPHIL (%) 84.8 % (45-76); NEUTROPHIL COUNT 13.6 K/uL (1.8-6.4); NRBC (%) 1.4 /100 WBC (0-0); PLATELET COUNT 200 K/uL (156-360); RBC DIS.WIDTH-CV 15.2 % (11.8-14.6); RBC DIS.WIDTH-SD 49.1 % (39-53); RED BLOOD COUNT 3.91 M/uL (3.80-5.20)
[2017-11-13 05:51] LABS: CHLORIDE 100 MEQ/L (99-109); CREATININE 5.5 MG/DL (0.6-1.3); GFR ESTIMATE (CALCULATED) 8 mL/min/; GLUCOSE 87 mg/dL (70-99); POTASSIUM 4.7 MEQ/L (3.7-5.4); SODIUM 139 MEQ/L (136-147); UREA NITROGEN (BUN) 37 mg/dL (9-23)
[2017-11-14 02:46] VITALS: BP 107/61
[2017-11-14 05:41] LABS: HEMATOCRIT 33.8 % (36.0-46.0); HEMOGLOBIN 10.9 G/DL (11.9-15.5); MCH 29.6 PG (29.0-34.0); MCHC 32.2 G/DL (30.0-36.0); MCV 91.8 FL (83-99); NRBC (%) 1.3 /100 WBC (0-0); PLATELET COUNT 181 K/uL (156-360); RBC DIS.WIDTH-CV 15.6 % (11.8-14.6); RBC DIS.WIDTH-SD 51.7 % (39-53); RED BLOOD COUNT 3.68 M/uL (3.80-5.20); WHITE BLOOD COUNT 11.9 K/uL (4.1-10.2)
[2017-11-14 06:09] LABS: CHLORIDE 102 MEQ/L (99-109); GFR ESTIMATE (CALCULATED) 13 mL/min/; GLUCOSE 75 mg/dL (70-99); SODIUM 139 MEQ/L (136-147); UREA NITROGEN (BUN) 19 mg/dL (9-23)
[2017-11-14 06:10] LABS: CREATININE 3.7 MG/DL (0.6-1.3)
[2017-11-14 06:49] LABS: ABS NEUTROPHIL COUNT 10.4; EOSINOPHIL ABS CT 0.2; EOSINOPHILS 1.8 % (0-5.0); LYMPHOCYTES 5.4 % (15.0-45.0); MONOCYTES 5.4 % (0-9.0); NUCLEATED RBC'S 3.6; SEG.NEUTROPHILS 87.4 % (46.0-76.0); SMUDGE CELLS 9.9
[2017-11-14 09:00] VITALS: BP 97/54
[2017-11-14] MEDS ORDERED: CEFTRIAXONE2 G1 IV (15:12)
[2017-11-14] MEDS ORDERED: SPIRIVA RESPIMAT4 GM IH (15:12)
[2017-11-14] MEDS ORDERED: DUONEB 2.5-0.5 M3 ML AEROSOL (15:12)
[2017-11-14] MEDS ORDERED: PRAVASTATIN SOD80 MG PO (15:13)
[2017-11-14] MEDS ORDERED: CILOSTAZOL50 MG PO (15:13)
[2017-11-14] MEDS ORDERED: METOPROLOL SUCC25 MG PO (15:13)
[2017-11-14] MEDS ORDERED: ADVAIR HFA120 INHALA IH (15:14)
[2017-11-14] MEDS ORDERED: HYDROCODON-ACE1 EAC7 PO (15:16)
[2017-11-14 16:00] VITALS: BP 112/64
== END 2017-11-14 18:03 | DRG 853 ==
LOC: EME 14:29 → EDOF 19:48 → 4WEST 19:48 → 5EAST 19:48 → ENRESERV 19:49 → 5EAST 21:22 → ENRESERV 11-09 09:00 → 5EAST 11-09 16:46 → ENRESERV 11-09 17:52 → 4WEST 11-09 19:31 → ENRESERV 11-13 01:08 → 4EAST 11-13 02:00
PROVIDERS: Hospitalist; Internal Medicine Critical Care Medicine; Internal Medicine Nephrology; Physician Assistant; Specialist; Student in an Organized Health Care Education/Training Program; Surgery
DX: A41.9 Sepsis, unspecified organism (principal); J18.9 Pneumonia, unspecified organism; K65.9 Peritonitis, unspecified; T80.29XA Infection following other infusion, transfusion and therapeutic injection, initial encounter; I50.33 Acute on chronic diastolic (congestive) heart failure; T85.611A Breakdown (mechanical) of intraperitoneal dialysis catheter, initial encounter; N18.6 End stage renal disease; I13.2 Hypertensive heart and chronic kidney disease with heart failure and with stage 5 chronic kidney disease, or end stage renal disease; I27.20 Pulmonary hypertension, unspecified; D63.1 Anemia in chronic kidney disease; I25.10 Atherosclerotic heart disease of native coronary artery without angina pectoris; E78.5 Hyperlipidemia, unspecified; Y81.2 Prosthetic and other implants, materials and accessory general- and plastic-surgery devices associated with adverse incidents; Y95 Nosocomial condition; I25.2 Old myocardial infarction; Z79.4 Long term (current) use of insulin; Z95.1 Presence of aortocoronary bypass graft; Z99.2 Dependence on renal dialysis; Z79.899 Other long term (current) drug therapy; Z79.82 Long term (current) use of aspirin; Z72.0 Tobacco use; J44.0 Chronic obstructive pulmonary disease with (acute) lower respiratory infection; I99.8 Other disorder of circulatory system; I70.8 Atherosclerosis of other arteries; E11.51 Type 2 diabetes mellitus with diabetic peripheral angiopathy without gangrene; E11.22 Type 2 diabetes mellitus with diabetic chronic kidney disease; S30.1XXA Contusion of abdominal wall, initial encounter; D62 Acute posthemorrhagic anemia; I65.29 Occlusion and stenosis of unspecified carotid artery; T38.0X5A Adverse effect of glucocorticoids and synthetic analogues, initial encounter; J96.11 Chronic respiratory failure with hypoxia; I50.32 Chronic diastolic (congestive) heart failure; Y84.1 Kidney dialysis as the cause of abnormal reaction of the patient, or of later complication, without mention of misadventure at the time of the procedure
CPT/HCPCS: 71010; 71045; 71250; 75635; 80048; 80048 91; 80053; 80069; 80076; 80202; 82310; 82948; 83605; 83735; 84100; 84484; 85025; 85025 91; 85027; 85610; 85730; 86704; 86706; 86803; 86850; 86860; 86870; 86880; 86900; 86901; 86905; 86920; 87040; 87070; 87205; 87340; 87449; 87493; 87502; 87641; 89051; 93005; 93926; 93971; 94010; 94640; 94640 76; 94644; 94799; 97530 GO; 97530 GP; 99202; 99281; 99285; C1750; C1751; C1757; C1875; C1894; J0295; J0456; J0690; J0696; J0881; J1170; J1644; J1815; J2250; J2405; J2543; J2710; J2720; J2765; J3010; J3370; J7040; J7050; J7512; P9016; S0020

== ENCOUNTER 2018-01-03 06:27 | Day surgery (SDC) | payer OTHER, MEDICARE ==
[~2018-01-03] VITALS: Ht 157.5 cm; Wt 52.2 kg
[~2018-01-03 06:27] MED LIST changes: +ADVAIR HFA120 INHALA IH; +AZITHROMYCIN250 MG1 PO; +CALCITRIOL0.25 MCG PO; +CARDIZEM CD120 M1 PO; +CEFTRIAXONE2 G1 IV; +CILOSTAZOL50 MG PO; +DUONEB 2.5-0.5 M3 ML AEROSOL; +FERRIC CITRATE210 MG PO; +GLUCOSE GEL38 GM PO; +HYDROCODON-ACE1 EAC7 PO; +IRON325 M1 PO; +MECLIZINE HCL25 MG PO; +METOPROLOL SUC100 MG PO; +METOPROLOL SUCC25 MG PO; +NEPRO CARB STE237 ML PO; +PRAVASTATIN SOD80 MG PO; +SPIRIVA RESPIMAT4 GM IH; +TYLENOL REGULA325 MG PO; +ZOFRAN4 MG PO
[2018-01-03 07:16] VITALS: BP 116/55
[2018-01-03 07:37] LABS: HEMATOCRIT 32.3 % (36.0-46.0); MCH 30.7 PG (29.0-34.0); MCV 99.1 FL (83-99); PLATELET COUNT 157 K/uL (156-360); RBC DIS.WIDTH-CV 16.9 % (11.8-14.6); RBC DIS.WIDTH-SD 61.8 % (39-53); RED BLOOD COUNT 3.26 M/uL (3.80-5.20); WHITE BLOOD COUNT 6.4 K/uL (4.1-10.2)
[2018-01-03 07:59] LABS: CHLORIDE 97 MEQ/L (99-109); CREATININE 2.7 MG/DL (0.6-1.3); GFR ESTIMATE (CALCULATED) 19 mL/min/; GLUCOSE 84 mg/dL (70-99); POTASSIUM 3.6 MEQ/L (3.7-5.4); SODIUM 138 MEQ/L (136-147); UREA NITROGEN (BUN) 17 mg/dL (9-23)
[2018-01-03 12:05] VITALS: BP 107/57
[2018-01-03 13:54] VITALS: BP 112/56
[2018-01-03 14:12] VITALS: BP 114/72
== END 2018-01-03 14:12 ==
LOC: SDC 06:27
PROVIDERS: Surgery
DX: I12.0 Hypertensive chronic kidney disease with stage 5 chronic kidney disease or end stage renal disease (principal); E11.22 Type 2 diabetes mellitus with diabetic chronic kidney disease; N18.6 End stage renal disease; Z99.2 Dependence on renal dialysis; Z87.891 Personal history of nicotine dependence; Z79.4 Long term (current) use of insulin; E78.00 Pure hypercholesterolemia, unspecified
CPT/HCPCS: 80048; 82948; 85027; C2628; J0690; J1644; J2720

== ENCOUNTER 2018-03-03 11:19 | Day surgery (SDC) | payer OTHER, MEDICARE ==
[~2018-03-03] VITALS: Ht 157.5 cm; Wt 52.2 kg
[~2018-03-03 11:19] MED LIST changes: +ATORVASTATIN CA20 MG PO
[2018-03-03 12:01] LABS: HEMATOCRIT 39.5 % (36.0-46.0); HEMOGLOBIN 12.9 G/DL (11.9-15.5); MCH 29.5 PG (29.0-34.0); MCHC 32.7 G/DL (30.0-36.0); MCV 90.2 FL (83-99); PLATELET COUNT 171 K/uL (156-360); RBC DIS.WIDTH-CV 15.8 % (11.8-14.6); RBC DIS.WIDTH-SD 51.5 % (39-53); RED BLOOD COUNT 4.38 M/uL (3.80-5.20); WHITE BLOOD COUNT 7.3 K/uL (4.1-10.2)
[2018-03-03 12:21] VITALS: BP 98/60
[2018-03-03 12:45] LABS: CHLORIDE 94 MEQ/L (99-109); CREATININE 2.4 MG/DL (0.6-1.3); GFR ESTIMATE (CALCULATED) 22 mL/min/; GLUCOSE 98 mg/dL (70-99); SODIUM 133 MEQ/L (136-147); UREA NITROGEN (BUN) 15 mg/dL (9-23)
[2018-03-03 20:14] VITALS: BP 89/44
[2018-03-04 00:12] VITALS: BP 84/46
[2018-03-04 03:51] VITALS: BP 97/42
[2018-03-04 06:59] LABS: BASOPHIL (%) 0.6 % (0-1); BASOPHIL COUNT 0.1 K/uL (0-0.1); EOSINOPHIL (%) 0.4 % (0-5); HEMATOCRIT 29.6 % (36.0-46.0); IMMATURE GRANULOCYTE (%) 0.3 % (0.0-0.7); LYMPHOCYTE (%) 7.4 % (15-42); LYMPHOCYTE COUNT 0.7 K/uL (1.0-2.8); MCH 30.1 PG (29.0-34.0); MCHC 32.8 G/DL (30.0-36.0); MCV 91.9 FL (83-99); MONOCYTE (%) 8.1 % (3-12); MONOCYTE COUNT 0.7 K/uL (0-0.8); NEUTROPHIL (%) 83.2 % (45-76); NEUTROPHIL COUNT 7.5 K/uL (1.8-6.4); PLATELET COUNT 154 K/uL (156-360); RBC DIS.WIDTH-SD 53.8 % (39-53); WHITE BLOOD COUNT 9.1 K/uL (4.1-10.2)
[2018-03-04 07:01] LABS: HEMOGLOBIN 9.7 G/DL (11.9-15.5); RED BLOOD COUNT 3.22 M/uL (3.80-5.20)
[2018-03-04 07:41] VITALS: BP 91/54
[2018-03-04 07:56] LABS: CHLORIDE 103 MEQ/L (99-109); GLUCOSE 71 mg/dL (70-99); POTASSIUM 4.5 MEQ/L (3.7-5.4); SODIUM 137 MEQ/L (136-147)
[2018-03-04 07:58] LABS: CREATININE 3.5 MG/DL (0.6-1.3); UREA NITROGEN (BUN) 23 mg/dL (9-23)
[2018-03-04 07:59] LABS: GFR ESTIMATE (CALCULATED) 14 mL/min/
[2018-03-04] MEDS ORDERED: ELIQUIS5 MG PO (12:05)
== END 2018-03-04 17:59 | disposition home or self-care (01) ==
LOC: SDC 11:19 → 2SOUTH 17:18 → 2EAST 17:18 → 2SOUTH 17:18 → ENRESERV 17:23 → 2EAST 18:59 → ENPENDDIS 03-04 → 2EAST 03-04 17:59
PROVIDERS: Surgery
PROC: 04CL0ZZ Extirpation of Matter from Left Femoral Artery, Open Approach (ICD-10-PCS; principal; 2018-03-03)
DX: T82.868A Thrombosis due to vascular prosthetic devices, implants and grafts, initial encounter (principal); Y83.2 Surgical operation with anastomosis, bypass or graft as the cause of abnormal reaction of the patient, or of later complication, without mention of misadventure at the time of the procedure
CPT/HCPCS: 80048; 82948; 85025; 85027; 86850; 86870; 86900; 86901; 86905; 86920; 87641; 94640; 94640 76; 94799; 99202; C1725; C1757; C1769; C1894; G0378; J0690; J1644; J1815; J2405; J3010; J7040; P9045; S0020

== ENCOUNTER 2018-03-05 19:25 | Inpatient (IN) | payer OTHER, MEDICARE ==
[~2018-03-05] VITALS: Ht 152.4 cm; Wt 54.6 kg
[~2018-03-05 19:25] MED LIST changes: +ELIQUIS5 MG PO
[2018-03-05 20:09] LABS: HEMATOCRIT 27.7 % (36.0-46.0); HEMOGLOBIN 9.4 G/DL (11.9-15.5); MCH 31.1 PG (29.0-34.0); MCHC 33.9 G/DL (30.0-36.0); MCV 91.7 FL (83-99); PLATELET COUNT 143 K/uL (156-360); RBC DIS.WIDTH-CV 16.1 % (11.8-14.6); RBC DIS.WIDTH-SD 53.8 % (39-53); RED BLOOD COUNT 3.02 M/uL (3.80-5.20); WHITE BLOOD COUNT 7.7 K/uL (4.1-10.2)
[2018-03-05 20:29] LABS: INTER. NORMALIZED RATIO 1.4
[2018-03-05 20:30] LABS: CHLORIDE 101 mEq/L (99-109); SODIUM 139 mEq/L (136-147)
[2018-03-05 20:53] LABS: GLUCOSE 109 mg/dL (70-99)
[2018-03-05 20:54] LABS: CREATININE 5.8 mg/dL (0.6-1.3); GFR ESTIMATE (CALCULATED) 8 mL/min/; UREA NITROGEN (BUN) 47 mg/dL (9-23)
[2018-03-06] MEDS ORDERED: SPIRIVA RESPIMAT4 GM IH (01:30)
[2018-03-06] MEDS ORDERED: CILOSTAZOL50 MG PO (01:30)
[2018-03-06 01:43] LABS: TOTAL PROTEIN 7.4 g/dL (6.4-8.3)
[2018-03-06 01:44] LABS: TOTAL BILIRUBIN 0.5 mg/dL (0.0-1.0)
[2018-03-06 01:45] LABS: ALKALINE PHOSPHATASE 125 IU/L (3-129)
[2018-03-06 01:48] LABS: AST (GOT) 17 IU/L (2-34); DIRECT BILIRUBIN 0.3 mg/dL (0.0-0.3)
[2018-03-06 01:49] LABS: ALT (GPT) < 3 IU/L (3-49); LIPASE 58 U/L (1.0-51.0)
[2018-03-06 02:57] VITALS: BP 83/56
[2018-03-06 03:19] VITALS: BP 83/57
[2018-03-06 09:24] LABS: HEMATOCRIT 28.3 % (36.0-46.0); HEMOGLOBIN 9.4 G/DL (11.9-15.5); MCH 30.8 PG (29.0-34.0); MCHC 33.2 G/DL (30.0-36.0); MCV 92.8 FL (83-99); PLATELET COUNT 122 K/uL (156-360); RBC DIS.WIDTH-CV 15.6 % (11.8-14.6); RBC DIS.WIDTH-SD 52.6 % (39-53); RED BLOOD COUNT 3.05 M/uL (3.80-5.20); WHITE BLOOD COUNT 5.9 K/uL (4.1-10.2)
[2018-03-06 10:49] VITALS: BP 119/72
[2018-03-06 13:24] LABS: ALBUMIN 3.4 G/DL (3.2-4.8); CHLORIDE 104 MEQ/L (99-109); CREATININE 5.9 MG/DL (0.6-1.3); GFR ESTIMATE (CALCULATED) 8 mL/min/; PHOSPHORUS 4.6 mg/dL (2.5-4.9); POTASSIUM 5.2 MEQ/L (3.7-5.4); SODIUM 139 MEQ/L (136-147); UREA NITROGEN (BUN) 50 mg/dL (9-23)
[2018-03-06 13:28] LABS: GLUCOSE 176 mg/dL (70-99)
[2018-03-06 16:12] VITALS: BP 119/64
[2018-03-06 20:00] VITALS: BP 86/42
[2018-03-07 00:19] VITALS: BP 106/51
[2018-03-07 03:39] VITALS: BP 81/44
[2018-03-07 07:28] LABS: BASOPHIL COUNT 0.1 K/uL (0-0.1); EOSINOPHIL (%) 5.4 % (0-5); EOSINOPHIL COUNT 0.3 K/uL (0-0.3); HEMATOCRIT 29.3 % (36.0-46.0); HEMOGLOBIN 9.6 G/DL (11.9-15.5); IMMATURE GRANULOCYTE (%) 0.6 % (0.0-0.7); LYMPHOCYTE (%) 13.2 % (15-42); LYMPHOCYTE COUNT 0.7 K/uL (1.0-2.8); MCHC 32.8 G/DL (30.0-36.0); MCV 94.5 FL (83-99); MONOCYTE (%) 9.6 % (3-12); MONOCYTE COUNT 0.5 K/uL (0-0.8); NEUTROPHIL (%) 70.2 % (45-76); NEUTROPHIL COUNT 3.7 K/uL (1.8-6.4); PLATELET COUNT 136 K/uL (156-360); RBC DIS.WIDTH-CV 16.1 % (11.8-14.6); WHITE BLOOD COUNT 5.2 K/uL (4.1-10.2)
[2018-03-07 07:32] VITALS: BP 98/52
[2018-03-07 07:55] LABS: CHLORIDE 104 MEQ/L (99-109); CREATININE 3.7 MG/DL (0.6-1.3); GFR ESTIMATE (CALCULATED) 13 mL/min/; GLUCOSE 91 mg/dL (70-99); POTASSIUM 4.5 MEQ/L (3.7-5.4); SODIUM 137 MEQ/L (136-147); UREA NITROGEN (BUN) 25 mg/dL (9-23)
[2018-03-07 12:21] VITALS: BP 90/61
[2018-03-07 15:22] VITALS: BP 136/75
[2018-03-07 19:38] VITALS: BP 101/52
[2018-03-08 00:07] VITALS: BP 113/62
[2018-03-08 03:39] VITALS: BP 87/51
[2018-03-08 06:30] LABS: HEMATOCRIT 28.5 % (36.0-46.0); HEMOGLOBIN 9.1 G/DL (11.9-15.5); MCH 30.4 PG (29.0-34.0); MCHC 31.9 G/DL (30.0-36.0); MCV 95.3 FL (83-99); PLATELET COUNT 141 K/uL (156-360); RBC DIS.WIDTH-CV 16.1 % (11.8-14.6); RBC DIS.WIDTH-SD 54.7 % (39-53); RED BLOOD COUNT 2.99 M/uL (3.80-5.20); WHITE BLOOD COUNT 5.8 K/uL (4.1-10.2)
[2018-03-08 07:32] VITALS: BP 103/42
[2018-03-08 08:28] LABS: ALBUMIN 3.3 G/DL (3.2-4.8); CHLORIDE 100 MEQ/L (99-109); GFR ESTIMATE (CALCULATED) 9 mL/min/; PHOSPHORUS 5.1 mg/dL (2.5-4.9); POTASSIUM 4.8 MEQ/L (3.7-5.4); SODIUM 134 MEQ/L (136-147)
[2018-03-08 08:43] LABS: CREATININE 5.2 MG/DL (0.6-1.3); GLUCOSE 164 mg/dL (70-99); UREA NITROGEN (BUN) 49 mg/dL (9-23)
[2018-03-08 11:14] VITALS: BP 94/48
[2018-03-08 15:17] VITALS: BP 84/50
[2018-03-08 19:57] VITALS: BP 83/55
[2018-03-09 00:19] VITALS: BP 105/53
[2018-03-09 03:45] VITALS: BP 83/51
[2018-03-09 06:10] LABS: BASOPHIL COUNT 0.1 K/uL (0-0.1); EOSINOPHIL (%) 5.4 % (0-5); EOSINOPHIL COUNT 0.3 K/uL (0-0.3); HEMOGLOBIN 9.5 G/DL (11.9-15.5); IMMATURE GRANULOCYTE (%) 0.5 % (0.0-0.7); LYMPHOCYTE (%) 15.5 % (15-42); LYMPHOCYTE COUNT 0.9 K/uL (1.0-2.8); MCH 30.3 PG (29.0-34.0); MCHC 31.7 G/DL (30.0-36.0); MCV 95.5 FL (83-99); MONOCYTE (%) 10.2 % (3-12); MONOCYTE COUNT 0.6 K/uL (0-0.8); NEUTROPHIL (%) 67.4 % (45-76); NEUTROPHIL COUNT 4.1 K/uL (1.8-6.4); PLATELET COUNT 161 K/uL (156-360); RBC DIS.WIDTH-CV 16.5 % (11.8-14.6); RBC DIS.WIDTH-SD 56.8 % (39-53); RED BLOOD COUNT 3.14 M/uL (3.80-5.20); WHITE BLOOD COUNT 6.1 K/uL (4.1-10.2)
[2018-03-09 07:42] VITALS: BP 117/53
[2018-03-09] MEDS ORDERED: ELIQUIS2.5 MG PO (11:45)
== END 2018-03-09 14:26 | disposition home health service (06) | DRG 981 ==
LOC: EME 19:25 → 5SOUTH 03-06 03:52 → EDOF 03-06 03:52 → ENRESERV 03-06 03:54 → 5SOUTH 03-06 09:28
PROVIDERS: Hospitalist; Internal Medicine; Internal Medicine Nephrology; Physician Assistant
PROC: 04C Lower Arteries, Extirpation (ICD-10-PCS; 2018-03-03)
PROC: 30233N1 Transfusion of Nonautologous Red Blood Cells into Peripheral Vein, Percutaneous Approach (ICD-10-PCS; principal; 2018-03-06)
PROC: 5A1D70Z Performance of Urinary Filtration, Intermittent, Less than 6 Hours Per Day (ICD-10-PCS; 2018-03-06)
DX: D62 Acute posthemorrhagic anemia (principal); I97.618 Postprocedural hemorrhage of a circulatory system organ or structure following other circulatory system procedure; Y83.8 Other surgical procedures as the cause of abnormal reaction of the patient, or of later complication, without mention of misadventure at the time of the procedure; I70.222 Atherosclerosis of native arteries of extremities with rest pain, left leg; N17.9 Acute kidney failure, unspecified; E86.1 Hypovolemia; I95.9 Hypotension, unspecified; I13.2 Hypertensive heart and chronic kidney disease with heart failure and with stage 5 chronic kidney disease, or end stage renal disease; I50.9 Heart failure, unspecified; N18.6 End stage renal disease; L89.620 Pressure ulcer of left heel, unstageable; I27.20 Pulmonary hypertension, unspecified; D63.1 Anemia in chronic kidney disease; Z99.2 Dependence on renal dialysis; I42.9 Cardiomyopathy, unspecified; R26.81 Unsteadiness on feet; E78.5 Hyperlipidemia, unspecified; I25.10 Atherosclerotic heart disease of native coronary artery without angina pectoris; I25.2 Old myocardial infarction; Z79.01 Long term (current) use of anticoagulants; Z79.82 Long term (current) use of aspirin; Z80.7 Family history of other malignant neoplasms of lymphoid, hematopoietic and related tissues; Z87.891 Personal history of nicotine dependence; Z95.1 Presence of aortocoronary bypass graft; Z22.322 Carrier or suspected carrier of Methicillin resistant Staphylococcus aureus
CPT/HCPCS: 80048; 80069; 80076; 82948; 83690; 85025; 85027; 85610; 86850; 86870; 86900; 86901; 86905; 86920; 87641; 93926; 94640; 94640 76; 94760; 94799; 99202; 99281; 99285; C1725; C1757; C1769; C1894; G0378; J0690; J0881; J1644; J1815; J2405; J3010; J7030; J7040; P9016; P9045; S0020

== ENCOUNTER 2018-03-17 12:34 | Day surgery (SDC) | payer OTHER, MEDICARE ==
[~2018-03-17 12:34] MED LIST changes: +ELIQUIS2.5 MG PO
== END 2018-03-17 16:15 | disposition home or self-care (01) ==
LOC: CATH 12:34
PROVIDERS: Surgery
DX: T82.858A Stenosis of other vascular prosthetic devices, implants and grafts, initial encounter (principal); I12.0 Hypertensive chronic kidney disease with stage 5 chronic kidney disease or end stage renal disease; E11.22 Type 2 diabetes mellitus with diabetic chronic kidney disease; E11.51 Type 2 diabetes mellitus with diabetic peripheral angiopathy without gangrene; Z99.2 Dependence on renal dialysis; E78.5 Hyperlipidemia, unspecified; Z98.890 Other specified postprocedural states; Z79.01 Long term (current) use of anticoagulants; Z79.82 Long term (current) use of aspirin; Z82.49 Family history of ischemic heart disease and other diseases of the circulatory system; Z79.4 Long term (current) use of insulin; Z83.3 Family history of diabetes mellitus
CPT/HCPCS: 82948; 87641; C1725; C1769; C1894; J1644; J2250; J2405; J3010

== ENCOUNTER 2018-05-19 18:50 | Emergency (ER) | payer OTHER, MEDICARE ==
[~2018-05-19] VITALS: Ht 154.9 cm; Wt 47.7 kg
[2018-05-19 21:22] LABS: HEMATOCRIT 41.4 % (36.0-46.0); HEMOGLOBIN 13.5 G/DL (11.9-15.5); MCH 33.6 PG (29.0-34.0); MCHC 32.6 G/DL (30.0-36.0); PLATELET COUNT 225 K/uL (156-360); RBC DIS.WIDTH-CV 19.8 % (11.8-14.6); RBC DIS.WIDTH-SD 73.7 % (39-53); RED BLOOD COUNT 4.02 M/uL (3.80-5.20); WHITE BLOOD COUNT 8.4 K/uL (4.1-10.2)
[2018-05-19 22:06] LABS: ALBUMIN 4.3 G/DL (3.2-4.8); ALKALINE PHOSPHATASE 122 IU/L (3-129); ALT (GPT) 10 IU/L (3-49); AST (GOT) 20 IU/L (2-34); CHLORIDE 94 MEQ/L (99-109); CREATININE 9.2 MG/DL (0.6-1.3); GFR ESTIMATE (CALCULATED) 5 mL/min/; GLUCOSE 54 mg/dL (70-99); SODIUM 137 MEQ/L (136-147); TOTAL BILIRUBIN 0.6 MG/DL (0.0-1.0); TOTAL PROTEIN 7.8 G/DL (6.4-8.3); UREA NITROGEN (BUN) 64 mg/dL (9-23)
[2018-05-20 03:10] LABS: CHLORIDE 100 mEq/L (99-109); SODIUM 140 mEq/L (136-147)
[2018-05-20 03:21] LABS: CREATININE 4.4 mg/dL (0.6-1.3); GFR ESTIMATE (CALCULATED) 11 mL/min/; GLUCOSE 86 mg/dL (70-99); POTASSIUM 4.1 mEq/L (3.7-5.4); UREA NITROGEN (BUN) 23 mg/dL (9-23)
[2018-05-20 03:38] VITALS: BP 105/51
== END 2018-05-20 03:44 | disposition home or self-care (01) ==
LOC: EME 18:50
PROVIDERS: Physician Assistant
DX: E87.5 Hyperkalemia (principal); R11.2 Nausea with vomiting, unspecified; R94.31 Abnormal electrocardiogram [ECG] [EKG]; I13.2 Hypertensive heart and chronic kidney disease with heart failure and with stage 5 chronic kidney disease, or end stage renal disease; E11.22 Type 2 diabetes mellitus with diabetic chronic kidney disease; N18.6 End stage renal disease; Z99.2 Dependence on renal dialysis; Z99.81 Dependence on supplemental oxygen; I50.9 Heart failure, unspecified; Z95.1 Presence of aortocoronary bypass graft; Z79.82 Long term (current) use of aspirin; Z79.4 Long term (current) use of insulin; Z87.891 Personal history of nicotine dependence
CPT/HCPCS: 80048; 80053; 81003; 85027; 93005; 99281; 99285; J2405; J7040

== ENCOUNTER 2018-06-27 08:45 | Day surgery (SDC) | payer OTHER, MEDICARE ==
[~2018-06-27] VITALS: Ht 152.4 cm; Wt 48.0 kg
[~2018-06-27 08:45] MED LIST changes: +MIDODRINE HCL2.5 MG PO; +MIRALAX17 GM PO
== END 2018-06-27 12:17 | disposition home or self-care (01) ==
LOC: CATH 08:45
PROVIDERS: Surgery
PROC: B51W1ZZ Fluoroscopy of Dialysis Shunt/Fistula using Low Osmolar Contrast (ICD-10-PCS; principal; 2018-06-27)
PROC: 03773ZZ Dilation of Right Brachial Artery, Percutaneous Approach (ICD-10-PCS; principal; 2018-06-27)
PROC: B54MZZA Ultrasonography of Right Upper Extremity Veins, Guidance (ICD-10-PCS; principal; 2018-06-27)
PROC: 05793ZZ Dilation of Right Brachial Vein, Percutaneous Approach (ICD-10-PCS; principal; 2018-06-27)
DX: T82.858A Stenosis of other vascular prosthetic devices, implants and grafts, initial encounter (principal); I12.0 Hypertensive chronic kidney disease with stage 5 chronic kidney disease or end stage renal disease; E11.22 Type 2 diabetes mellitus with diabetic chronic kidney disease; N18.6 End stage renal disease; Z99.2 Dependence on renal dialysis; E78.5 Hyperlipidemia, unspecified; Z98.890 Other specified postprocedural states; Z95.820 Peripheral vascular angioplasty status with implants and grafts; Y83.2 Surgical operation with anastomosis, bypass or graft as the cause of abnormal reaction of the patient, or of later complication, without mention of misadventure at the time of the procedure
CPT/HCPCS: 82948; 87641; C1725; C1769; C1894; J1644; J2250; J3010